=== PATIENT | male | born 1980 | race Caucasian/White ===

== ENCOUNTER 2021-04-02 13:56 | Outpatient (REF) | payer OTHER, SELFPAY ==
--- NOTE | ~2021-04-02 | XR_ITS ---
EXAMINATION: XR CERVICAL SPINE CLINICAL INFORMATION: Strain of muscle, fascia and tendon at the neck COMPARISON: CT of the cervical spine 09/11/2015 TECHNIQUE: 3 views of the cervical spine were obtained. FINDINGS: There is mild reversal of the normal lordosis of the cervical spine. Vertebral body heights are maintained. No acute fracture or dislocation. There has been fusion of C5-C6. There is intervertebral disc space narrowing at C4-C5 and C6-C7 with associated anterior and uncovertebral osteophyte formation. There is a normal C1-C2 articulation. The posterior elements are intact. The paravertebral soft tissues are normal. The lung apices are clear. XR/XR cervical spine 3V IMPRESSION: No acute bony abnormality of the cervical spine. Bony fusion between C5 and C6. Multilevel degenerative changes as above.
== END 2021-04-02 13:57 | disposition home or self-care (01) ==
LOC: HO.HMGCLDS 13:56
PROVIDERS: PCP Nurse Practitioner Family; Visit Provider Internal Medicine
DX: Z20.822 Contact with and (suspected) exposure to COVID-19 (principal); S16.1XXD Strain of muscle, fascia and tendon at neck level, subsequent encounter
CPT/HCPCS: 72040; C9803; U0003; U0005

== ENCOUNTER 2021-04-02 15:22 | Outpatient (REF) | payer OTHER, SELFPAY | END 2021-04-02 15:23 | disposition home or self-care (01) | LOC: HO.HMGCX 15:22 | PROVIDERS: Visit Provider Physician Assistant Medical | DX: Z13.89 Encounter for screening for other disorder (principal) ==

== ENCOUNTER 2021-04-09 11:51 | Outpatient (REF) | payer OTHER, SELFPAY | END 2021-04-09 11:52 | disposition home or self-care (01) | LOC: HO.HMGCLDS 11:51 | PROVIDERS: PCP Nurse Practitioner Family; Visit Provider Internal Medicine | DX: Z20.822 Contact with and (suspected) exposure to COVID-19 (principal) | CPT/HCPCS: C9803; U0003; U0005 ==

== ENCOUNTER 2021-04-26 07:36 | Outpatient (REF) | payer OTHER, SELFPAY ==
[2021-04-26 11:37] LABS: Alanine Aminotransferase 36 U/L (0-40); Albumin Level 4.2 g/dL (3.5-5.0); Alkaline Phosphatase 74 U/L (39-117); Anion Gap 14 (12-20); Aspartate Amino Transferase 27 U/L (5-37); Bilirubin Total 0.5 mg/dL (0.0-1.0); Blood Urea Nitrogen 21 mg/dL (9-16); Calcium 9.5 mg/dL (8.4-10.2); Carbon Dioxide 27 mmol/L (22-29); Chloride 102 mmol/L (96-108); Cholesterol 234 mg/dL; Estimated Glomerular Filt Rate > 60; Glucose Fasting 102 mg/dL (60-99); HDL Cholesterol 33 mg/dL; LDL Cholesterol Calculated 126 mg/dl; Potassium 4.7 mmol/L (3.3-5.1); Sodium 138 mmol/L (135-145); Total Protein 6.8 g/dL (6.5-8.0); Triglycerides 375 mg/dL
[2021-04-26 11:47] LABS: Appearance Urine CLEAR; Color Urine YELLOW; Glucose Urine UA NEG (NEG); Leukocyte Esterase Urine NEG (NEG); Nitrite Urine NEG (NEG); PH 6.5 (5.0-8.0); Urine Blood NEG (NEG); Urine Ketones NEG (NEG); Urine Protein NEG (NEG-TRACE)
[2021-04-26 11:58] LABS: TSH reflex Free T4 2.64 uIU/mL (0.32-4.0)
== END 2021-04-26 07:37 | disposition home or self-care (01) ==
LOC: HO.HMGCLDS 07:36
PROVIDERS: PCP Nurse Practitioner Family; Visit Provider Nurse Practitioner Family
DX: F41.9 Anxiety disorder, unspecified (principal)
CPT/HCPCS: 36415; 80053; 80061; 81003; 84443

== ENCOUNTER 2021-05-18 07:00 | Outpatient (RCR) | payer OTHER, SELFPAY ==
--- NOTE | 2021-09-14 07:43 | MHC.PT.DC ---
[facility] [place] Office [place] Office [place] Office [address] Zac Easton [address] [phone] F: [phone] F: [phone] F: [phone] F: [phone] Physical Therapy Discharge Report Diagnosis: neck pain Date of Surgery: Date of Evaluation: 04/13/21 Date of Discharge: 06/16/21 Treatments to Date: 7 Cancellations to Date: 0 No Shows to Date: 0 Discharge Status: Improved Function Independent with HEP Discharge Summary: Pt was at satisfactory level of s/s with good awareness on how to manage s/s. He has a good HEP and is appropriate to d/c to HEP at this time. 05/18/21: pt with increased tissue tension in UT/LS > on L. Pt notes improved postural awareness. 05/13/21: pt with less discomfort, less tissue tension. Work is producing less discomfort. Able to perform more postural ex during appts. 05/11/21: pt with less discomfort in c-spine and shoulders. good carryover with postural edu. limited to some extent with elbow pain. Addressed elbow discomfort with increased manual intervention to neck. However, s/s unchanged. Educated thoroughly on activity mod related to work activities in order to off load extensor mass. Electronically signed by: Abdoul Amaya PT Please sign and return to therapist. Thank you for your referral.
== END 2021-09-14 07:44 | disposition home or self-care (01) ==
LOC: HO.PTCHIC 07:00
PROVIDERS: Visit Provider Nurse Practitioner Family
DX: S16.1XXD Strain of muscle, fascia and tendon at neck level, subsequent encounter (principal); M54.2 Cervicalgia
CPT/HCPCS: 97110; 97140; 97162

== ENCOUNTER 2021-05-18 08:04 | Outpatient (REF) | payer OTHER, SELFPAY | END 2021-05-18 08:05 | disposition home or self-care (01) | LOC: HO.HMGCLDS 08:04 | PROVIDERS: PCP Nurse Practitioner Family; Visit Provider Internal Medicine | DX: Z20.822 Contact with and (suspected) exposure to COVID-19 (principal) | CPT/HCPCS: C9803; U0003; U0005 ==

== ENCOUNTER → 2021-07-20 08:00 | Outpatient (REF) | payer OTHER, SELFPAY ==
--- NOTE | ~2021-07-20 | NM_ITS ---
Exercise Myocardial perfusion study Indication: Chest pain to evaluate for myocardial ischemia Technique: The patient was brought in for an exercise perfusion study on 07/20/2021. Patient performed exercise as per Ming protocol and was injected 35 mCi of sestamibi was given intravenously one target HR was achieved. Images were obtained using the SPECT gamma camera interlaced with the gating device. Images were obtained in supine position. Resting perfusion study was performed on 07/21/2021.. Patient was administered 35 mCi of sestamibi intravenously at rest. Images were then obtained in supine position. Images obtained with and without CT attenuation. Total DLP 126mGy-cm. Images were processed with the software and compared side to side in short axis, horizontal long axis and vertical long axis views. Findings: The stress perfusion study showed non attenuated images show mildly reduced uptake in the basal inferior wall of the LV myocardium. The LV myocardium is normally perfused. Attenuation corrected images show normal uptake in the inferior wall reduced uptake in the apex of the LV myocardium.. The gated study shows normal LV systolic function with calculated LVEF of 60%. LV cavity is mildly dilated in size. The gated study shows normal systolic wall thickening and contraction of all segments. There is no transient ischemic dilation. Resting study shows intense uptake in the septum of the inferior wall uptake in the inferior and apical suboptimal.Non attenuated images show moderately reduced taken inferior wall of the LV myocardium.. Gating at rest reveals normal systolic wall motion with ejection fraction at 67%. The findings are consistent with likely normal myocardial perfusion. NM/NM cardiolite stress test Impression: 1. Likely normal myocardial perfusion 2. Gated LVEF is 60% 3. Transient ischemic dilatation not present Stress EKG is negative for ischemia
--- NOTE | 2021-07-20 08:03 | CA_ITS ---
Acquisition Time: 2021-07-20 08:07:47 Total Exercise Time: 00:09:00 Test Indications: Chest Pain Medications: ATORVASTATIN CYCLOBENZAPRINE METHADONE Protocol: JOSE RAUL Max HR: 157 BPM 87% of Pred: 180 BPM Max BP: 166/088 mmHG Max Work Load: 10.1 METS Exercise stress test with exercise 9 min of Jose Raul protocol, with mild sob, no chest discomfort with exercise, with isolated PVC, with normotensive response to exercise, without EKG changes meeting criteria for ischemia. Once in recovery he reported a mild ache in right chest region that lasted about 2 min and resolved. Nuclear images pending. Test reviewed with Dr Forte. Referred By: Da Valdez Overread By: MARIA DOLORES SO
[2021-07-20 10:29] LABS: Cholesterol 122 mg/dL; HDL Cholesterol 27 mg/dL; LDL Cholesterol Calculated 35 mg/dl; Triglycerides 304 mg/dL
== END ==
LOC: HO.CARD 08:00
PROVIDERS: PCP Nurse Practitioner Family; Visit Provider Nurse Practitioner Family
DX: R07.89 Other chest pain (principal); E78.5 Hyperlipidemia, unspecified; Z82.49 Family history of ischemic heart disease and other diseases of the circulatory system
CPT/HCPCS: 36415; 78452; 80061; 93017; A9500

== ENCOUNTER 2021-08-08 12:57 | Outpatient (REF) | payer OTHER, SELFPAY ==
--- NOTE | ~2021-08-08 | US_ITS ---
EXAMINATION: US EXTRACRANIAL CAROTID DUPLEX, BILATERAL CLINICAL INFORMATION: Dyslipidemia, smoking history, family history of coronary artery disease COMPARISON: None TECHNIQUE: Real-time ultrasound and Doppler techniques (integrating B-mode 2-D vascular images, Doppler spectral analysis and color-flow Doppler imaging) were utilized to interrogate the extracranial carotid arteries, the vertebral arteries and proximal subclavian arteries bilaterally. The degree of stenosis is determined by criteria similar to NASCET. FINDINGS: Right Side: 1. There is mild atherosclerotic plaque seen in the bifurcation/proximal ICA region. 2. The common carotid artery PSV proximally is 147 cm/s and distally 96 cm/s. 3. The proximal internal carotid artery velocities are 139 cm/s systolic and 34 cm/s diastolic. 4. The proximal external carotid artery PSV is 116 cm/s. 5. The vertebral artery shows antegrade flow. 6. The subclavian artery waveforms are normal. Left Side: 1. There is mild atherosclerotic plaque seen in the bifurcation/proximal ICA region. 2. The common carotid artery PSV proximally is 172 cm/s and distally 116 cm/s. 3. The proximal internal carotid artery velocities are 100 cm/s systolic and 36 cm/s diastolic. 4. The proximal external carotid artery PSV is 143 cm/s. 5. The vertebral artery shows antegrade flow. 6. The subclavian artery waveforms are normal. US/US carotid duplex BI IMPRESSION: 1. RIGHT: Moderate, hemodynamically significant stenosis of the proximal right internal carotid artery corresponding to a 50-79% stenosis by velocity criteria. 2. LEFT: Minimal, non-hemodynamically significant stenosis of the proximal left internal carotid artery corresponding to a 0-49% stenosis by velocity criteria.
== END 2021-08-08 12:58 | disposition home or self-care (01) ==
LOC: HO.HMGCX 12:57
PROVIDERS: PCP Nurse Practitioner Family; Visit Provider Nurse Practitioner Family
DX: F17.200 Nicotine dependence, unspecified, uncomplicated (principal); E78.5 Hyperlipidemia, unspecified; Z82.49 Family history of ischemic heart disease and other diseases of the circulatory system
CPT/HCPCS: 93880

== ENCOUNTER → 2021-09-20 15:26 | Outpatient (BNVA) | payer OTHER, SELFPAY | PROVIDERS: PCP Nurse Practitioner Family; Visit Provider Surgery Vascular Surgery | DX: I65.23 Occlusion and stenosis of bilateral carotid arteries (principal) | CPT/HCPCS: 99202 ==

== ENCOUNTER 2021-10-06 07:22 | Outpatient (REF) | payer OTHER, SELFPAY ==
--- NOTE | ~2021-10-06 | MR_ITS ---
EXAMINATION: MR CERVICAL SPINE WITHOUT CONTRAST CLINICAL INFORMATION: 41-year-old with cervicalgia. COMPARISON: 04/02/2021 x-rays, 09/11/2015 CT. TECHNIQUE: MRI of the cervical spine was obtained using routine sequences without contrast. FINDINGS: Alignment: Slight mid cervical levocurvature, stable in appearance from previous CT. There is lordotic reversal centered at C4-C5, similar to previous x-rays. Craniocervical Junction/C1-C2 Articulations: Intact and aligned. Visualized Intracranial Structures: Within normal limits. Vertebral Bodies: Moderate chronic loss of height of the anterior aspect of the C5 vertebral body and mild chronic loss of height of the anterior aspect of the C6 vertebral body, with ankylosis of the intervertebral disc space at this level, similar to previous x-rays. Remaining vertebral body heights are well maintained. Disc Spaces and Endplates: There is solid osseous interbody fusion at the C5-C6 level which has developed since the previous CT. Remaining intervertebral disc space heights are relatively well maintained with minor anterior marginal disc-osteophyte complex at C4-C5 and minor anterior marginal endplate spurring at the C6-C7. Disc desiccation is noted at C2-C3, C3-C4, C4-C5, and C6-C7. Bone Marrow: No significant marrow-replacing process or bone marrow edema. C2-C3: No disc herniation or canal stenosis. Minor left-sided and moderate right-sided facet arthropathy with moderate right-sided neural foraminal stenosis without canal stenosis. C3-C4: No disc herniation or canal stenosis. Uncovertebral spurring noted bilaterally with [id number]-mbnczdra bilateral facet arthropathy, right more than left, with kecdnwif-ke-bjokqb bilateral neural foraminal stenosis. C4-C5: No disc herniation, cord impingement or canal stenosis. Bilateral uncovertebral spurring noted with moderate bilateral facet arthropathy, right more than left, with severe right-sided and yzgnwtkz-ir-idmouu left-sided neural foraminal stenosis. C5-C6: Posterior osteophytic ridging noted with osseous interbody fusion and mild flattening of the ventral dural sac without cord impingement or canal stenosis. Facet joints are predominately ankylosed at this level bilaterally, and there is moderate bony neural foraminal stenosis on the left with mild right-sided bony neural foraminal stenosis. C6-C7: Shallow broad-based central disc protrusion with slight flattening the ventral dural sac without cord impingement or significant spinal canal stenosis. Bilateral uncovertebral disc-osteophyte complex noted with moderate facet arthropathy bilaterally and kswmluqy-yl-hdhlgd bilateral neural foraminal stenosis. C7-T1: No disc herniation, cord impingement or canal stenosis. Moderate left-sided and hiou-zr-qbrblbho right-sided facet arthrosis noted with moderate left-sided neural foraminal stenosis. Spinal Cord: The cervical and visualized upper thoracic spinal cord is normal in morphology, caliber and signal intensity throughout within the limitations of the study (signal poor images on the axial T2-weighted sequence). Extracranial Soft Tissues: Grossly unremarkable. MR/MR cervical spine wo con IMPRESSION: 1. Lordotic reversal centered at C5 with anterior interbody fusion at this level, similar to previous x-rays, with bilateral facet joint fusion as well with mild right-sided and moderate left-sided bony neural foraminal stenosis. 2. Shallow broad-based central disc protrusion at C6-C7 without spinal cord impingement or significant canal stenosis. 3. Multilevel bilateral uncovertebral and facet arthropathy with multilevel bilateral neural foraminal stenosis, as detailed by level above, between C2-C3 and C7-T1 inclusive.
== END 2021-10-06 07:23 | disposition home or self-care (01) ==
LOC: HO.MRI 07:22
PROVIDERS: Visit Provider Nurse Practitioner Family
DX: M54.2 Cervicalgia (principal); M54.12 Radiculopathy, cervical region
CPT/HCPCS: 72141

== ENCOUNTER 2022-03-30 15:06 | Outpatient (REF) | payer OTHER, SELFPAY ==
--- NOTE | ~2022-03-30 | US_ITS ---
EXAMINATION: US EXTRACRANIAL CAROTID DUPLEX, BILATERAL CLINICAL INFORMATION: Occlusion and stenosis of the carotid arteries COMPARISON: Carotid duplex on 08/08/2021 TECHNIQUE: Real-time ultrasound and Doppler techniques (integrating B-mode 2-D vascular images, Doppler spectral analysis and color-flow Doppler imaging) were utilized to interrogate the extracranial carotid arteries, the vertebral arteries and proximal subclavian arteries bilaterally. The degree of stenosis is determined by criteria similar to NASCET. FINDINGS: Right Side: 1. There is moderate atherosclerotic plaque seen in the bifurcation/proximal ICA region. 2. The common carotid artery PSV proximally is 151 cm/s and distally 100 cm/s. 3. The proximal internal carotid artery velocities are 133 cm/s systolic and 34 cm/s diastolic. 4. The proximal external carotid artery PSV is 136 cm/s. 5. The vertebral artery shows antegrade flow. 6. The subclavian artery waveforms are normal. Left Side: 1. There is mild atherosclerotic plaque seen in the bifurcation/proximal ICA region. 2. The common carotid artery PSV proximally is 159 cm/s and distally 99 cm/s. 3. The proximal internal carotid artery velocities are 110 cm/s systolic and 36 cm/s diastolic. 4. The proximal external carotid artery PSV is 164 cm/s. 5. The vertebral artery shows antegrade flow. 6. The subclavian artery waveforms are normal. US/US carotid duplex BI IMPRESSION: 1. RIGHT: Moderate, hemodynamically significant stenosis of the proximal right internal carotid artery corresponding to a 50-79% stenosis by velocity criteria. 2. LEFT: Minimal, non-hemodynamically significant stenosis of the proximal left internal carotid artery corresponding to a 0-49% stenosis by velocity criteria. 3. There is no change in the category severity of disease when compared to the previous study dated 08/08/2021.
== END 2022-03-30 15:07 | disposition home or self-care (01) ==
LOC: HO.US 15:06
PROVIDERS: PCP Nurse Practitioner Family; Visit Provider Surgery Vascular Surgery
DX: I65.23 Occlusion and stenosis of bilateral carotid arteries (principal)
CPT/HCPCS: 93880

== ENCOUNTER → 2022-04-04 15:14 | Outpatient (BNVA) | payer OTHER, SELFPAY | PROVIDERS: PCP Nurse Practitioner Family; Visit Provider Surgery Vascular Surgery | DX: I65.23 Occlusion and stenosis of bilateral carotid arteries (principal) | CPT/HCPCS: 99212 ==

== ENCOUNTER 2022-07-19 07:25 | Outpatient (REF) | payer OTHER, SELFPAY ==
[2022-07-19 11:08] LABS: MANUAL DIFF FLAG NO
[2022-07-19 11:18] LABS: Basophils Absolute Auto 0.1 X10*3/uL (0.0-0.2); Basophils Percent Auto 0.9 % (0-2); Eosinophils Absolute Auto 0.2 X10*3/uL (0.0-0.4); Eosinophils Percent Auto 2.1 % (0-4); Hematocrit 43.3 % (42.0-52.0); Hemoglobin 14.4 g/dl (14.0-18.0); Imm Gran Abs Auto 0.02 X10*3/uL (0.00-0.03); Imm Gran Pct Auto 0.2 % (0.0-0.4); Lymphocytes Absolute Auto 2.8 X10*3/uL (1.2-4.9); Lymphocytes Percent Auto 35.4 % (20-40); Mean Corpuscular HGB Conc 33.3 g/dl (31.0-36.0); Mean Corpuscular Hemoglobin 30.3 pg (27.0-33.0); Mean Corpuscular Volume 91.2 fL (80.0-98.0); Monocytes Absolute Auto 0.4 X10*3/uL (0.1-1.2); Neutrophils Absolute Auto 4.5 x10*3/uL (2.0-8.3); Neutrophils Percent Auto 56.4 % (45-73); Platelet Count 198 X10*3/uL (160-400); Red Blood Count 4.75 X10*6/uL (4.60-5.80); Red Cell Distribution Width 13.2 % (11.0-16.0)
[2022-07-19 11:33] LABS: Appearance Urine Clear; Color Urine Yellow; Glucose Urine UA Negative (Negative); Leukocyte Esterase Urine Negative (Negative); Nitrite Urine Negative (Negative); PH 6.5 (5.0-9.0); Specific Gravity - Urine >= 1.030 (1.005-1.025); Urine Blood Negative (Negative); Urine Ketones Negative (Negative); Urine Protein Trace mg/dL (Neg-Trace)
[2022-07-19 11:43] LABS: Alanine Aminotransferase 23 U/L (0-40); Albumin Level 3.7 g/dL (3.5-5.0); Alkaline Phosphatase 99 U/L (39-117); Anion Gap 13 (12-20); Aspartate Amino Transferase 22 U/L (5-37); Bilirubin Total 0.7 mg/dL (0.0-1.0); Blood Urea Nitrogen 15 mg/dL (9-16); Calcium 8.7 mg/dL (8.4-10.2); Carbon Dioxide 25 mmol/L (22-29); Chloride 101 mmol/L (96-108); Cholesterol 162 mg/dL; Estimated Glomerular Filt Rate > 60; Glucose Fasting 254 mg/dL (60-99); HDL Cholesterol 23 mg/dL; Potassium 4.4 mmol/L (3.3-5.1); Sodium 135 mmol/L (135-145); Total Protein 6.2 g/dL (6.5-8.0); Triglycerides 724 mg/dL
[2022-07-19 12:09] LABS: TSH reflex Free T4 2.86 uIU/mL (0.32-4.0)
== END 2022-07-19 07:26 | disposition home or self-care (01) ==
LOC: HO.HMGCLDS 07:25
PROVIDERS: PCP Nurse Practitioner Family; Visit Provider Nurse Practitioner Family
DX: Z00.00 Encounter for general adult medical examination without abnormal findings (principal); E78.1 Pure hyperglyceridemia; E78.5 Hyperlipidemia, unspecified
CPT/HCPCS: 36415; 80053; 80061; 81003; 84443; 85025

== ENCOUNTER 2022-08-16 06:25 | Outpatient (REF) | payer OTHER, SELFPAY ==
[2022-08-16 11:46] LABS: Appearance Urine Turbid; Color Urine Yellow; Glucose Urine UA Negative (Negative); Leukocyte Esterase Urine Negative (Negative); Nitrite Urine Negative (Negative); PH 5.5 (5.0-9.0); Specific Gravity - Urine >= 1.030 (1.005-1.025); Urine Blood Negative (Negative); Urine Ketones Negative (Negative); Urine Protein Negative (Neg-Trace)
[2022-08-16 11:54] LABS: MANUAL DIFF FLAG NO
[2022-08-16 12:10] LABS: Basophils Percent Auto 0.4 % (0-2); Eosinophils Absolute Auto 0.1 X10*3/uL (0.0-0.4); Eosinophils Percent Auto 1.4 % (0-4); Hematocrit 43.9 % (42.0-52.0); Hemoglobin 14.1 g/dl (14.0-18.0); Imm Gran Abs Auto 0.03 X10*3/uL (0.00-0.03); Imm Gran Pct Auto 0.3 % (0.0-0.4); Lymphocytes Absolute Auto 2.6 X10*3/uL (1.2-4.9); Lymphocytes Percent Auto 26.6 % (20-40); Mean Corpuscular HGB Conc 32.1 g/dl (31.0-36.0); Mean Corpuscular Hemoglobin 30.5 pg (27.0-33.0); Mean Platelet Volume 10.8 fL (9.4-12.4); Monocytes Absolute Auto 0.5 X10*3/uL (0.1-1.2); Monocytes Percent Auto 4.8 % (2-11); Neutrophils Absolute Auto 6.5 x10*3/uL (2.0-8.3); Neutrophils Percent Auto 66.5 % (45-73); Platelet Count 207 X10*3/uL (160-400); Red Blood Count 4.62 X10*6/uL (4.60-5.80); White Blood Count 9.8 X10*3/uL (4.8-10.8)
[2022-08-16 12:48] LABS: Estimated Average Glucose 226 mg/dL; Hemoglobin A1c % 9.5 %
[2022-08-16 13:03] LABS: Alanine Aminotransferase 21 U/L (0-40); Albumin Level 3.9 g/dL (3.5-5.0); Alkaline Phosphatase 72 U/L (39-117); Anion Gap 16 (12-20); Aspartate Amino Transferase 21 U/L (5-37); Bilirubin Total 0.4 mg/dL (0.0-1.0); Blood Urea Nitrogen 20 mg/dL (9-16); Calcium 8.8 mg/dL (8.4-10.2); Carbon Dioxide 21 mmol/L (22-29); Chloride 107 mmol/L (96-108); Cholesterol 84 mg/dL; Estimated Glomerular Filt Rate > 60; Glucose Fasting 185 mg/dL (60-99); HDL Cholesterol 25 mg/dL; LDL Cholesterol Calculated 23 mg/dl; Potassium 4.7 mmol/L (3.3-5.1); Sodium 139 mmol/L (135-145); TSH reflex Free T4 2.38 uIU/mL (0.32-4.0); Total Protein 6.2 g/dL (6.5-8.0); Triglycerides 181 mg/dL
== END 2022-08-16 06:26 | disposition home or self-care (01) ==
LOC: HO.HMGCLDS 06:25
PROVIDERS: PCP Nurse Practitioner Family; Visit Provider Nurse Practitioner Family
DX: E11.9 Type 2 diabetes mellitus without complications (principal)
CPT/HCPCS: 36415; 80053; 80061; 81003; 83036; 84443; 85025

== ENCOUNTER 2023-04-30 08:47 | Outpatient (AMB) | payer OTHER, SELFPAY ==
--- NOTE | 2023-04-30 08:53 | MHC.PC.OV ---
Vital Signs 04/30/23 08:55 Height 5 ft 11 in Weight 248 lb BMI 34.6 BP 150/90 H Blood Pressure Location Lt brachial Position Sitting Pulse 57 Pulse Source Pulse Oximeter Pulse Oximetry (%) 97 Oxygen Delivery Method Room Air Intake Visit Reasons: Annual PE Intake Note: Pt is here today for his PE Allergies cephalexin [Keflex] Allergy (Unknown, Verified 04/30/23 08:56) Hives From Keflex Allergy (Unknown, Uncoded 04/30/23 08:56) HIVES Medication List - Last Reconciled 04/30/23 by Da Valdez, [facility]- atorvastatin 40 mg PO BEDTIME blood sugar diagnostic (FreeStyle Lite Strips) Use to check blood sugar twice daily: fasting blood sugar and random blood sugar blood-glucose meter (FreeStyle Lite Meter kit) Use to check blood sugar twice daily: fasting blood sugar and random blood sugar lancets (FreeStyle Lancets) Use to check blood sugar twice daily: fasting blood sugar and random blood sugar lisinopril 2.5 mg PO DAILY metformin 1,000 mg PO BID methadone 62 mg PO DAILY metoprolol succinate ER 50 mg PO DAILY nicotine (polacrilex) (Nicorette) 4 mg buccal Q2H PRN 30 days omega-3 acid ethyl esters 2 caps PO BID 90 days Tobacco use date assessed: 04/30/23 Dental Screening Dental Screen Date: 04/30/23 Did you have a dental visit in the last 12 months?: Yes Did you have a dental problem in the last 6 months where you did not have access to dental care?: Yes Was dental information given to patient?: Patient has dentist HPI Annual PE HPI Details Pt is here for a PE. Will order labs. Pt is a diabetic, on an TAYLOR and a statin. A1C in office today is 6.2. Due for microalbumin. Denies polyuria, polydipsia, reports neuropathy to his left big toe. Pt denies any signs and symptoms of hypoglycemia and does know how to correct it. Pt does not check his blood sugar. Pt needs an eye doctor, will refer. Refuses pneumonia vaccines, currently. Pt reports not checking his sugars often, reinforced importance of knowing what his numbers are. HTN: Blood pressure is elevated today, will increase lisinopril from 2.5mg to 5mg. Will have pt monitor his BP at home. Denies chest pain, shortness of breath, headache, dizziness, and blurred vision. [facility] Social History Housing: House Patient Tobacco Use Status: Current everyday Tobacco user Cigarettes Per Day: 10 e-Cigarette/Vaping Use: Never Used Second Hand Smoke Exposure: No service: No Current occupational status: employed Current occupation: [employer] Current occupational exposures/hazards: No Cognitive needs: No Hearing needs: No Vision needs: No Questionnaire Thrive Questionnaire Date Thrive assessed: 10/17/22 HARVINDER-7 AMB Questionnaire HARVINDER-7 Date HARVINDER - 7 assessed: 10/17/22 Source: Developed by Drs. Mayco Aquino, Belen Perez, Cosme Pacheco and colleagues, with an educational genna from [employer]. Review of Systems Const Denies chills and Denies fever(s) Eyes Denies blurry vision ENT Denies vertigo, Denies dizziness and Denies sore throat Card Denies chest pain at rest, Denies chest pain with activity, Denies diaphoresis, Denies dyspnea and Denies dyspnea on exertion Resp Denies cough, Denies dyspnea, Denies dyspnea on exertion and Denies wheezing GI Denies abdominal pain, Denies melena, Denies hematochezia, Denies constipation, Denies diarrhea and Denies loose stools Denies hematuria Musc Denies numbness and Denies tingling Skin/Breast Denies lesions Neuro Denies vertigo, Denies dizziness, Denies numbness and Denies tingling Psych Denies anxiety, Denies depression, Denies homicidal ideation, Denies suicidal ideation and Denies other (substance abuse) Aller/Immun Denies wheezing Physical exam (Primary Care) Vital Signs: Last Vital Signs Pulse 57 04/30/23 08:55 BP 150/90 H 04/30/23 08:55 Pulse Ox 97 04/30/23 08:55 Oxygen Delivery Method Room Air 04/30/23 08:55 BMI result Body Mass Index 34.6 Tobacco/Smoking Status: Tobacco use Status Tobacco use date assessed 04/30/23 04/30/23 08:57 Patient Tobacco Use Status Current everyday Tobacco 04/30/23 08:55 e-Cigarette/Vaping Use Never Used 04/30/23 08:55 Thrive Assessment: Date of Thrive Assessment Date Thrive assessed 10/17/22 04/30/23 08:55 Const General: cooperative Nutritional Appearance: obese Orientation/consciousness: patient oriented x3 HENMT Head: Yes normal to inspection, Yes normocephalic and Yes atraumatic Ears: TM's normal bilaterally Eyes General: appearance normal, both eyes and all related structures Alignment and Position: alignment normal and position normal Neck Neck: Yes normal visual inspection and Yes no lymphadenopathy Thyroid: Thyroid normal Resp Effort & Inspection: normal respiratory effort Auscultation: clear to auscultation bilaterally Cardio Rate: regular rate Rhythm: regular rhythm Heart sounds: S1 normal heart sound present, S2 normal heart sound present and no murmurs GI Palpation (GI): Soft to palpation and nontender Auscultation: normal bowel sounds Male General Exam: Yes normal external exam Penis: normal penis Scrotum: scrotum normal, testes descended bilaterally and no inguinal hernias Testes: no testicular mass Skin Rashes: no rashes Neuro General: patient oriented x3, moves all extremities, no focal motor deficits and deep tendon reflexes 2+ bilaterally Romberg Test: Negative Extrem Other: bilat feet: + sensation with use of monofilament Psych Appearance: grossly normal Mental Status: mental status grossly normal Speech and movement: Normal speech and movement present Affect: normal affect Attitude: cooperative Thought process: Normal thought process present Thought content: Normal thought content present Insight: Good insight present (Psych) Judgement: Good judgement present (Psych) Results AMB Hemoglobin A1c AMB Hemoglobin A1c 6.2 % Last Edit by Catarina Chávez CMA on 04/30/23 09:15 Assessment and Plan Assessment & Plan (1) Diabetes: Code(s): E11.9 - Type 2 diabetes mellitus without complications Plan: Labs ordered (2) Physical exam: Code(s): Z00.00 - Encounter for general adult medical examination without abnormal findings Plan: Labs ordered (3) HTN (hypertension): Code(s): I10 - Essential (primary) hypertension Plan: increased lisinopril from 2.5mg to 5mg, pt will call me if sustaining above 140/90 Plan The patient agreed to the use of a medical office receptionist assistant for this encounter. Scribed for SHON Bishop by chad Head scribe, on 04/30/2023 at 09:10 EST. Orders: Orders AMB Hemoglobin A1c Today E11.9 - Type 2 diabetes mellitus without complications Comprehensive [place]. Panel Fast Today E11.9 - Type 2 diabetes mellitus without complications, Z00.00 - Encounter for general adult medical examination without abnormal findings TSH reflex Free T4 Today E11.9 - Type 2 diabetes mellitus without complications, Z00.00 - Encounter for general adult medical examination without abnormal findings Lipid Panel Today E11.9 - Type 2 diabetes mellitus without complications, Z00.00 - Encounter for general adult medical examination without abnormal findings Complete Blood Count Auto Diff Today E11.9 - Type 2 diabetes mellitus without complications, Z00.00 - Encounter for general adult medical examination without abnormal findings UA CC w/rflx Micro + Cult Today E11.9 - Type 2 diabetes mellitus without complications, Z00.00 - Encounter for general adult medical examination without abnormal findings Microalbumin, Random (w Creat) Today E11.9 - Type 2 diabetes mellitus without complications, Z00.00 - Encounter for general adult medical examination without abnormal findings Referrals Optometry Referral E11.9 - Type 2 diabetes mellitus without complications Medications: Changed From lisinopril 2.5 mg PO DAILY 90 tabs 1RF To lisinopril increased from 2.5mg to 5mg 5 mg PO DAILY 90 tabs 1RF Coding Level of Care Code Est Pt Prev Care 40-64y(69516) Diagnoses Diabetes E11.9 Physical exam Z00.00 HTN (hypertension) I10
[2023-04-30 08:55] VITALS: BP 150/90; PULSE 57; O2SAT 97; BMI 34.6
== END 2023-04-30 09:22 | disposition home or self-care (01) ==
PROVIDERS: Visit Provider Nurse Practitioner Family
DX: Z00.00 Encounter for general adult medical examination without abnormal findings (principal); E11.9 Type 2 diabetes mellitus without complications; I10 Essential (primary) hypertension; F17.210 Nicotine dependence, cigarettes, uncomplicated
CPT/HCPCS: 83036; 99396

== ENCOUNTER 2023-07-25 07:11 | Outpatient (REF) | payer OTHER, SELFPAY ==
[2023-07-25 11:08] LABS: MANUAL DIFF FLAG NO
[2023-07-25 11:25] LABS: Appearance Urine Clear; Color Urine Yellow; Glucose Urine UA Negative (Negative); Leukocyte Esterase Urine Negative (Negative); Nitrite Urine Negative (Negative); PH 5.5 (5.0-9.0); Urine Blood Negative (Negative); Urine Ketones Negative (Negative); Urine Protein Negative (Neg-Trace)
[2023-07-25 11:26] LABS: Basophils Percent Auto 0.4 % (0-2); Eosinophils Absolute Auto 0.1 X10*3/uL (0.0-0.4); Eosinophils Percent Auto 0.7 % (0-4); Hematocrit 43.1 % (42.0-52.0); Hemoglobin 14.4 g/dl (14.0-18.0); Imm Gran Abs Auto 0.02 X10*3/uL (0.00-0.03); Imm Gran Pct Auto 0.2 % (0.0-0.4); Lymphocytes Absolute Auto 2.6 X10*3/uL (1.2-4.9); Lymphocytes Percent Auto 31.5 % (20-40); Mean Corpuscular HGB Conc 33.4 g/dl (31.0-36.0); Mean Corpuscular Hemoglobin 30.6 pg (27.0-33.0); Mean Corpuscular Volume 91.5 fL (80.0-98.0); Mean Platelet Volume 9.7 fL (9.4-12.4); Monocytes Absolute Auto 0.4 X10*3/uL (0.1-1.2); Monocytes Percent Auto 5.3 % (2-11); Neutrophils Absolute Auto 5.1 x10*3/uL (2.0-8.3); Neutrophils Percent Auto 61.9 % (45-73); Platelet Count 280 X10*3/uL (160-400); Red Blood Count 4.71 X10*6/uL (4.60-5.80); Red Cell Distribution Width 12.7 % (11.0-16.0); White Blood Count 8.3 X10*3/uL (4.8-10.8)
[2023-07-25 11:42] LABS: Creatinine Urine 154.77 mg/dL; Microalbum/Creatinine Ratio Ur 6.4 ug/mg cr (<30)
[2023-07-25 12:06] LABS: Alanine Aminotransferase 24 U/L (0-40); Albumin Level 4.1 g/dL (3.5-5.0); Alkaline Phosphatase 67 U/L (39-117); Anion Gap 12 (12-20); Aspartate Amino Transferase 23 U/L (5-37); Bilirubin Total 0.3 mg/dL (0.0-1.0); Blood Urea Nitrogen 17 mg/dL (9-16); Calcium 9.3 mg/dL (8.4-10.2); Carbon Dioxide 26 mmol/L (22-29); Chloride 107 mmol/L (96-108); Cholesterol 117 mg/dL (<200); Estimated Glomerular Filt Rate > 60; Glucose Fasting 138 mg/dL (60-99); HDL Cholesterol 23 mg/dL (>40); LDL Cholesterol Calculated 27 mg/dL (<100); Potassium 4.1 mmol/L (3.3-5.1); Sodium 141 mmol/L (135-145); TSH reflex Free T4 1.33 uIU/mL (0.32-4.0); Total Protein 6.9 g/dL (6.5-8.0); Triglycerides 339 mg/dL (<150)
[2023-07-25 12:54] LABS: Estimated Average Glucose 120 mg/dL; Hemoglobin A1C 145.0183 umol/L; Hemoglobin A1c % 5.8 % (<6.0)
[2023-07-25 15:54] LABS: Influenza A PCR POSITIVE (Negative); Influenza B PCR NEGATIVE (Negative); Resp Syncy Virus RNA Qual PCR NEGATIVE (Negative); SARS COV2 PCR INHOUSE NEGATIVE (Negative)
== END 2023-07-25 07:12 | disposition home or self-care (01) ==
LOC: HO.HMGCLDS 07:11
PROVIDERS: Nurse Practitioner Family; PCP Nurse Practitioner Family; Visit Provider Nurse Practitioner Family
DX: Z00.00 Encounter for general adult medical examination without abnormal findings (principal); Z11.52 Encounter for screening for COVID-19; Z20.822 Contact with and (suspected) exposure to COVID-19; E11.9 Type 2 diabetes mellitus without complications; R05.9 Cough, unspecified
CPT/HCPCS: 0241U; 36415; 80053; 80061; 81003; 82043; 82570; 83036; 84443; 85025

== ENCOUNTER 2023-07-25 10:52 | Outpatient (AMB) | payer OTHER, SELFPAY ==
[2023-07-25 11:06] VITALS: BP 130/70; PULSE 91; TEMP 36.3; O2SAT 96; BMI 33.6
--- NOTE | 2023-07-25 11:06 | MHC.OFFWIV ---
Intake Vital Signs 07/25/23 11:06 Height 5 ft 11 in Weight 241 lb BMI 33.6 BP 130/70 Blood Pressure Location Lt brachial Position Sitting Pulse 91 Pulse Source Pulse Oximeter Temp 97.4 F Temp Source Temporal Artery Scan Pulse Oximetry (%) 96 Oxygen Delivery Method Room Air Intake Visit Reasons: EP, sinus pressure, dizziness 1 week Intake Note: pt is here today for sinus pressure and dizziness started 1 week ago Patient Tobacco Use Status: Current everyday Tobacco user Allergies cephalexin [Keflex] Allergy (Unknown, Verified 07/25/23 11:07) Hives From Keflex Allergy (Unknown, Uncoded 04/30/23 08:56) HIVES Do you need a note to return to daycare/school/sports/work: Yes HPI HPI Comments History of Present Illness Details 43 y/o male patient who present to walk in clinic with c/o sinus pressure and cough. Symptoms started about 1 week ago. Reports that his daughter is home sick from Influenza. [facility] Social History Housing: House Patient Tobacco Use Status: Current everyday Tobacco user Cigarettes Per Day: 10 e-Cigarette/Vaping Use: Never Used Second Hand Smoke Exposure: No service: No Current occupational status: employed Current occupation: [employer] Current occupational exposures/hazards: No Cognitive needs: No Hearing needs: No Vision needs: No Review of Systems Const All systems reviewed & are unremarkable except as noted in HPI and below Physical Exam Vital Signs: Last Vital Signs Temp 97.4 F 07/25/23 11:06 Pulse 91 07/25/23 11:06 BP 130/70 07/25/23 11:06 Pulse Ox 96 07/25/23 11:06 Oxygen Delivery Method Room Air 07/25/23 11:06 BMI result Body Mass Index 33.6 Const General: comfortable and no acute distress HEENT Head: Yes normocephalic Ears: external ears normal and TM's normal bilaterally General nose exam: Abnormal mucous membranes and turbinates present boggy and erythematous Face and sinus: Yes sinuses nontender Mouth: moist mucous membranes Throat: Yes posterior oropharynx normal Resp Effort & Inspection: normal respiratory effort, able to speak in complete sentences and Actively coughing Auscultation: clear to auscultation bilaterally Cardio Rate: regular rate Rhythm: regular rhythm Assessment & Plan Assessment & Plan (1) Cough in adult: Code(s): R05.9 - Cough, unspecified Plan: - OTC Cold/cough remedies (2) Upper respiratory infection: Code(s): J06.9 - Acute upper respiratory infection, unspecified Qualifiers: URI type: acute nasopharyngitis (common cold) Qualified Code(s): J00 - Acute nasopharyngitis [common cold] Plan: - Warm fluids - Rest (3) Influenza A: Code(s): J10.1 - Influenza due to other identified influenza virus with other respiratory manifestations Plan: - Take Tamiflu as directed. Orders: Orders SARS-CoV2/FLU/RSV Today R05.9 - Cough, unspecified Medications: New polpidepgdvln-DU-baxomewdnur 5-10-100 mg/5 mL (Adult Robitussin Peak Cold M-S) 10 mL PO Q4H PRN 237 mL 0RF cold symptoms J06.9 - Acute upper respiratory infection, unspecified, R05.9 - Cough, unspecified oseltamivir (Tamiflu) 75 mg PO BID 5 days 10 caps 0RF J06.9 - Acute upper respiratory infection, unspecified, J10.1 - Influenza due to other identified influenza virus with other respiratory manifestations, R05.9 - Cough, unspecified oseltamivir (Tamiflu) 75 mg PO BID 5 days 10 caps 0RF J06.9 - Acute upper respiratory infection, unspecified, R05.9 - Cough, unspecified oseltamivir (Tamiflu) 75 mg PO BID 5 days 10 caps 0RF J06.9 - Acute upper respiratory infection, unspecified, R05.9 - Cough, unspecified Coding Level of Care Code Est Pt Level 3 (45382) Diagnoses Cough in adult R05.9 Acute nasopharyngitis J00 URI type: acute nasopharyngitis (common cold) Influenza A J10.1 Time Spent (min) 15
== END 2023-07-25 11:58 | disposition home or self-care (01) ==
PROVIDERS: PCP Nurse Practitioner Family; Visit Provider Nurse Practitioner Family
DX: R05.9 Cough, unspecified (principal); J10.1 Influenza due to other identified influenza virus with other respiratory manifestations
CPT/HCPCS: 99213

== ENCOUNTER 2023-07-25 11:49 | Outpatient (REF) | payer OTHER, SELFPAY | END 2023-07-25 11:50 | disposition home or self-care (01) | LOC: HO.LAB 11:49 | PROVIDERS: Visit Provider Nurse Practitioner Family | DX: Z13.89 Encounter for screening for other disorder (principal) ==

== ENCOUNTER 2023-10-20 16:42 | Emergency (ER) | payer OTHER, SELFPAY ==
[2023-10-20 16:45] VITALS: BP 148/64; PULSE 73; RESP 18; TEMP 36.8; O2SAT 97; BMI 33.5
--- NOTE | 2023-10-20 16:49 | ED.WOUNDLAC ---
HPI - Wound/Laceration General Chief Complaint: Wound/Laceration Stated Complaint: left leg laceration Related Data Previous Rx's ?Medication ?Instructions ?Recorded blood sugar diagnostic (FreeStyle #100 ea 08/18/22 Lite Strips) blood-glucose meter (FreeStyle #1 ea 08/18/22 Lite Meter kit) lancets 28 gauge (FreeStyle #100 ea 08/18/22 Lancets) metformin 1,000 mg tablet 1,000 mg PO BID #180 tabs 03/13/23 fenofibric acid 105 mg tablet 105 mg PO DAILY #90 tabs 07/25/23 oseltamivir 75 mg capsule (Tamiflu) 75 mg PO BID 5 days #10 caps 07/25/23 jpurmhrbxkqsq-HA-pduzpbejouj 5 10 ml PO Q4H PRN cold symptoms 07/25/23 mg-10 mg-100 mg/5 mL oral liquid #237 mL (Adult Robitussin Peak Cold M-S) omega-3 acid ethyl esters 1 gram 1 cap PO BID 90 days #180 caps 08/14/23 capsule Allergies Allergy/AdvReac Type Severity Reaction Status Date / Time cephalexin [Keflex] Allergy Unknown Hives Verified 10/20/23 16:49 From Keflex Allergy Unknown HIVES Uncoded 04/30/23 08:56 [facility] Social History Social History Housing: House Patient Tobacco Use Status: Current everyday Tobacco user Cigarettes Per Day: 10 e-Cigarette/Vaping Use: Never Used Second Hand Smoke Exposure: No Advance Directives: No Advance Directives Information Provided: No service: No Current occupational status: employed Current occupation: [employer] Current occupational exposures/hazards: No Cognitive needs: No Hearing needs: No Vision needs: No Physical Exam Vital Signs: Vital Signs: Last Vital Signs Temp 98.2 F 10/20/23 16:45 Pulse 73 10/20/23 16:45 Resp 18 10/20/23 16:45 BP 148/64 H 10/20/23 16:45 Pulse Ox 97 10/20/23 16:45 O2 Del Method Room Air 10/20/23 16:45 BMI result Body Mass Index 33.5 Course Course Course Narrative: This is an RME: Additional HPI, ROS, PE not included below will be deferred to primary provider. RME assessment and note performed by: Lu Livingston PA-C This is a 43-year-old male who presents emergency department with complaints of right leg laceration which occurred today work. He accidentally lacerated his right leg on a piece of tile. 3 cm laceration noted requiring suture repair, unsure of last tetanus shot. Plan: Wound repair, tetanus Reevaluation(s) Reevaluation #1: Patient left without completing treatment. Discharge Plan Discharge Clinical Impression: Laceration of leg Patient Disposition: Left W/O Completing Treatment Prescriptions: No Action (DME) FreeStyle Lite Strips Strip See Rx Instructions .Route Qty: 100 3RF Rx Instructions: Use to check blood sugar twice daily: fasting blood sugar and random blood sugar (DME) blood-glucose meter [FreeStyle Lite Meter] Kit See Rx Instructions .Route Qty: 1 0RF Rx Instructions: Use to check blood sugar twice daily: fasting blood sugar and random blood sugar (DME) lancets [FreeStyle Lancets] 28 gauge misc See Rx Instructions .Route Qty: 100 3RF Rx Instructions: Use to check blood sugar twice daily: fasting blood sugar and random blood sugar metformin 1,000 mg tablet 1,000 mg PO BID Qty: 180 0RF fenofibric acid 105 mg tablet 105 mg PO DAILY Qty: 90 0RF omega-3 acid ethyl esters 1 gram capsule 1 cap PO BID 90 Days Qty: 180 0RF Adult Robitussin Peak Cold M-S 5-10-100 mg/5 mL liquid 10 ml PO Q4H PRN (Reason: cold symptoms) Qty: 237 0RF oseltamivir [Tamiflu] 75 mg capsule 75 mg PO BID 5 Days Qty: 10 0RF Discharge Date/Time: 10/21/23 02:46
== END 2023-10-21 02:46 | disposition left against medical advice (07) ==
LOC: HO.ED 10-21 02:07
PROVIDERS: Emergency Provider Emergency Medicine; PCP Nurse Practitioner Family
DX: S81.811A Laceration without foreign body, right lower leg, initial encounter (principal); W26.8XXA Contact with other sharp object(s), not elsewhere classified, initial encounter; Y93.9 Activity, unspecified; Y92.89 Other specified places as the place of occurrence of the external cause; Y99.0 Civilian activity done for income or pay
CPT/HCPCS: 99281

== ENCOUNTER 2024-01-03 13:00 | Emergency (ER) | payer OTHER, SELFPAY ==
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
--- NOTE | ~2024-01-03 | XR_ITS ---
EXAMINATION: XR CHEST 2 VIEW CLINICAL INFORMATION: Chest pain, shortness of breath. COMPARISON: 07/04/2016 TECHNIQUE: PA and lateral views of the chest obtained. FINDINGS: The lungs are clear. There are no pleural effusions. The cardiomediastinal silhouette is normal. XR/XR chest 2V IMPRESSION: No acute cardiopulmonary disease.
--- NOTE | 2024-01-03 13:12 | ECG_ITS ---
Test Reason : chest pain Blood Pressure : / mmHG Vent. Rate : 098 BPM Atrial Rate : 098 BPM P-R Int : 124 ms QRS Dur : 094 ms QT Int : 350 ms P-R-T Axes : 075 069 062 degrees QTc Int : 446 ms Normal sinus rhythm Normal ECG When compared with ECG of 29-APR-2010 19:51, No significant change was found Referred By: Generic ED Physician Electronically Signed By:THOMAS VALDEZ MD
[2024-01-03 13:28] VITALS: BP 187/86; PULSE 94; RESP 18; TEMP 36.6; O2SAT 96; BMI 29.8
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
[2024-01-03 13:57] LABS: MANUAL DIFF FLAG NO
[2024-01-03 14:01] LABS: Basophils Percent Auto 0.2 % (0-2); Eosinophils Percent Auto 0.2 % (0-4); Hematocrit 43.9 % (42.0-52.0); Hemoglobin 14.9 g/dl (14.0-18.0); Imm Gran Abs Auto 0.03 X10*3/uL (0.00-0.03); Imm Gran Pct Auto 0.3 % (0.0-0.4); Lymphocytes Absolute Auto 1.9 X10*3/uL (1.2-4.9); Lymphocytes Percent Auto 20.3 % (20-40); Mean Corpuscular HGB Conc 33.9 g/dl (31.0-36.0); Mean Corpuscular Hemoglobin 31.4 pg (27.0-33.0); Mean Corpuscular Volume 92.4 fL (80.0-98.0); Mean Platelet Volume 9.5 fL (9.4-12.4); Monocytes Absolute Auto 0.3 X10*3/uL (0.1-1.2); Monocytes Percent Auto 3.3 % (2-11); Neutrophils Absolute Auto 7.2 x10*3/uL (2.0-8.3); Neutrophils Percent Auto 75.7 % (45-73); Platelet Count 212 X10*3/uL (160-400); Red Blood Count 4.75 X10*6/uL (4.60-5.80); Red Cell Distribution Width 12.7 % (11.0-16.0); White Blood Count 9.6 X10*3/uL (4.8-10.8)
[2024-01-03 14:15] LABS: Alanine Aminotransferase 25 U/L (0-40); Albumin Level 4.4 g/dL (3.5-5.0); Alkaline Phosphatase 62 U/L (39-117); Anion Gap 13 (12-20); Aspartate Amino Transferase 30 U/L (5-37); Bilirubin Total 0.7 mg/dL (0.0-1.0); Blood Urea Nitrogen 21 mg/dL (9-16); Calcium 9.8 mg/dL (8.4-10.2); Carbon Dioxide 25 mmol/L (22-29); Chloride 105 mmol/L (96-108); Creatinine Clr Calc Pharmacy 93.6; Estimated Glomerular Filt Rate > 60; Glucose Random 164 mg/dL (60-115); Lipase 19 U/L (8-78); Magnesium 1.9 mg/dL (1.6-2.6); Potassium 4.1 mmol/L (3.3-5.1); Sodium 139 mmol/L (135-145); Total Protein 7.1 g/dL (6.5-8.0)
[2024-01-03 14:23] LABS: Troponin-I High Sensitivity < 2.7 ng/L (<3.5-35.0)
[2024-01-03 16:33] VITALS: BP 146/82
[2024-01-03 16:39] LABS: Appearance Urine Clear; Color Urine Dark Yellow; Glucose Urine UA Negative (Negative); Leukocyte Esterase Urine Negative (Negative); Nitrite Urine Negative (Negative); PH 5.5 (5.0-9.0); Specific Gravity - Urine >= 1.030 (1.005-1.025); Urine Blood Negative (Negative); Urine Ketones Trace mg/dL (Negative); Urine Protein Trace mg/dL (Neg-Trace)
[2024-01-03 17:09] VITALS: BP 146/82; PULSE 94; RESP 18; TEMP 36.6
== END 2024-01-03 17:10 | disposition home or self-care (01) ==
PROVIDERS: Physician Assistant Medical; Emergency Provider Student in an Organized Health Care Education/Training Program; PCP Nurse Practitioner Family
DX: I10 Essential (primary) hypertension (principal); F41.9 Anxiety disorder, unspecified; R06.02 Shortness of breath; R51.9 Headache, unspecified; E11.9 Type 2 diabetes mellitus without complications; E78.5 Hyperlipidemia, unspecified; Z79.84 Long term (current) use of oral hypoglycemic drugs; Z79.899 Other long term (current) drug therapy
CPT/HCPCS: 36415; 70450; 71046; 80053; 81003; 83690; 83735; 84484; 85025; 93005; 99284

== ENCOUNTER → 2024-01-03 13:12 | Outpatient (BNV) | payer OTHER, SELFPAY | PROVIDERS: Emergency Provider Student in an Organized Health Care Education/Training Program; PCP Nurse Practitioner Family; Visit Provider Internal Medicine Cardiovascular Disease | DX: R07.9 Chest pain, unspecified (principal) | CPT/HCPCS: 93010 ==

== ENCOUNTER 2024-02-14 11:34 | Outpatient (AMB) | payer OTHER, SELFPAY ==
[2024-02-14 11:40] VITALS: BP 128/80; PULSE 81; O2SAT 97; BMI 29.7
--- NOTE | 2024-02-14 11:40 | MHC.PC.OV ---
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: No Accompanied by: Self / Same As Patient Allergies cephalexin [Keflex] Allergy (Unknown, Verified 02/14/24 11:59) Hives From Keflex Allergy (Unknown, Uncoded 02/14/24 11:59) HIVES Medication List - Last Reconciled 02/14/24 by SHON Kahn blood sugar diagnostic (FreeStyle Lite Strips) Use to check blood sugar twice daily: fasting blood sugar and random blood sugar blood-glucose meter (FreeStyle Lite Meter kit) Use to check blood sugar twice daily: fasting blood sugar and random blood sugar lancets (FreeStyle Lancets) Use to check blood sugar twice daily: fasting blood sugar and random blood sugar lisinopril 5 mg PO DAILY methadone 48 mg PO Q6H Tobacco use date assessed: 02/14/24 Dental Screening Dental Screen Date: 02/14/24 Did you have a dental visit in the last 12 months?: Yes Did you have a dental problem in the last 6 months where you did not have access to dental care?: No Was dental information given to patient?: Patient has dentist HPI follow up HPI Details Pt is a diabetic, on an TAYLOR. A1C in office today is 5.9. Microalbumin is up to date. Denies polyuria, polydipsia, and neuropathy. Pt denies any signs and symptoms of hypoglycemia and does know how to correct it. Due for eye exam, will refer. He has been working on his diet, portions sizes and cutting back sweets. [facility] Surgical History No pertinent past surgical history Social History Housing: House Patient Tobacco Use Status: Current everyday Tobacco user Cigarettes Per Day: 10 e-Cigarette/Vaping Use: Never Used Second Hand Smoke Exposure: No service: No Current occupational status: employed Current occupation: [employer] Current occupational exposures/hazards: No Cognitive needs: No Hearing needs: No Vision needs: No Questionnaire PHQ-9 Over the last 2 weeks, how often have you been bothered by any of the following problems? 1. Little interest or pleasure in doing things: more than half the days 2. Feeling down, depressed, or hopeless: more than half the days 3. Trouble falling or staying asleep, or sleeping too much: more than half the days 4. Feeling tired or having little energy: more than half the days 5. Poor appetite or overeating: not at all 6. Feeling bad about yourself - or that you are a failure or have let yourself or your family down: more than half the days 7. Trouble concentrating on things, such as reading the newspaper or watching television: not at all 8. Moving or speaking so slowly that other people could have noticed. Or the opposite - being so fidgety or restless that you have been moving around a lot more than usual: more than half the days 9. Thoughts that you would be better off or of hurting yourself in some way: more than half the days Total score: 14 Depression Screening Interpretation: Positive Depression Screening Done: Yes 75072 - PHQ-9 Billing: Yes Source: Developed by Drs. Mayco Aquino, Belen Perez, Cosme Pacheco and colleagues, with an educational genna from [employer]. Thrive Questionnaire Date Thrive assessed: 02/14/24 I am a: Patient What is your living situation today?: I have a steady place to live Within the past 12 months, did the food you bought not last and you didn't have the money to get more?: Never true Within the past 12 months, did you worry whether your food would run out before you got money to buy more?: Never true Do you have trouble paying for medicines?: No Do you have trouble getting transportation to medical appointments?: No Do you have trouble paying your heating and electricity bill?: No Do you have trouble taking care of your child, family member or friend?: No Do you have trouble with day-to-day activities such as bathing, preparing meals, shopping, managing finances, etc.?: No Are you currently unemployed and looking for a job?: No Are you interested in more education?: No Please select the resources that you would like help with: Utilities and Childcare Currently or been in a relationship where the following occur: No concerns reported THRIVE Score: 0 AUDIT C Alcohol Use Questionnaire (AUDIT-C) 1. How often do you have a drink containing alcohol?: Never 3. How often do you have six or more drinks on one occasion?: Never Total Score: 0 Score Reviewed/Action Taken: Yes HARVINDER-7 AMB Questionnaire HARVINDER-7 Date HARVINDER - 7 assessed: 02/14/24 Feeling nervous, anxious, or on edge: 2 = More than half the days Not being able to stop or control worryin = More than half the days Worrying too much about different things: 2 = More than half the days Trouble relaxin = More than half the days Being so restless that it is hard to sit still: 2 = More than half the days Becoming easily annoyed or irritable: 2 = More than half the days Feeling afraid as if something awful might happen: 2 = More than half the days Total HARVINDER-7 score (0-4 normal; 5-9 mild; 10-14 moderate; 15-21 severe): 14 Source: Developed by Drs. Mayco Aquino, Belen Perez, Cosme Pacheco and colleagues, with an educational genna from [employer]. HARVINDER-7 Assessment Billing HARVINDER-7 Assessment Tool: HARVINDER-7 Assessment 92890 Review of Systems Const Reports as per HPI Physical exam (Primary Care) Vital Signs: Last Vital Signs Pulse 81 02/14/24 11:40 BP 128/80 02/14/24 11:40 Pulse Ox 97 02/14/24 11:40 Oxygen Delivery Method Room Air 02/14/24 11:40 BMI result Body Mass Index 29.7 Tobacco/Smoking Status: Tobacco use Status Tobacco use date assessed 02/14/24 02/14/24 11:52 Patient Tobacco Use Status Current everyday Tobacco 02/14/24 11:41 e-Cigarette/Vaping Use Never Used 02/14/24 11:41 PHQ-9: PHQ-9 Score PHQ-9: Total score 14 02/14/24 11:52 Depression Screening Interpretation: Positive Thrive Assessment: Date of Thrive Assessment Date Thrive assessed 02/14/24 02/14/24 11:52 Currently or been in a relationship where the following occur: No concerns reported Const General: cooperative Orientation/consciousness: patient oriented x3 Resp Effort & Inspection: normal respiratory effort Auscultation: clear to auscultation bilaterally Cardio Rate: regular rate Rhythm: regular rhythm Heart sounds: S1 normal heart sound present and S2 normal heart sound present Neuro General: patient oriented x3 Extrem Other: bilat feet: + sensation with use of monofilament, feet intact Psych Appearance: grossly normal Mental Status: mental status grossly normal Speech and movement: Normal speech and movement present Affect: normal affect Attitude: cooperative Thought process: Normal thought process present Thought content: Normal thought content present Insight: Good insight present (Psych) Judgement: Good judgement present (Psych) Assessment and Plan Assessment & Plan (1) Diabetes: Code(s): E11.9 - Type 2 diabetes mellitus without complications Plan: Labs ordered Plan The patient agreed to the use of a medical care evaluation specialist for this encounter. Scribed for SHON Bishop by June Donahue medical care evaluation specialist, on 02/14/2024 at 12:00 EST. Orders: Orders UA CC w/rflx Micro + Cult Today E11.9 - Type 2 diabetes mellitus without complications Complete Blood Count Auto Diff Today E11.9 - Type 2 diabetes mellitus without complications Comprehensive [place]. Panel Fast Today E11.9 - Type 2 diabetes mellitus without complications TSH reflex Free T4 Today E11.9 - Type 2 diabetes mellitus without complications Lipid Panel Today E11.9 - Type 2 diabetes mellitus without complications Referrals Ophthalmology Referral E11.9 - Type 2 diabetes mellitus without complications Coding Level of Care Code Est Pt Level 3 (26778) Diagnoses Diabetes E11.9 Additional Codes HARVINDER-7 Assessment Billing - HARVINDER-7 Assessment Tool: HARVINDER-7 Assessment 90401 ([id number])
== END 2024-02-14 12:46 | disposition home or self-care (01) ==
PROVIDERS: PCP Nurse Practitioner Family; Visit Provider Nurse Practitioner Family
DX: E11.9 Type 2 diabetes mellitus without complications (principal)

== ENCOUNTER → 2024-02-14 11:34 | Outpatient (BNVA) | payer OTHER, SELFPAY | PROVIDERS: PCP Nurse Practitioner Family; Visit Provider Nurse Practitioner Family | DX: E11.9 Type 2 diabetes mellitus without complications (principal) | CPT/HCPCS: 96127; 99212 ==

== ENCOUNTER 2024-03-07 07:09 | Outpatient (REF) | payer OTHER, SELFPAY ==
[2024-03-07 10:15] LABS: MANUAL DIFF FLAG NO
[2024-03-07 10:15] LABS: Appearance Urine Turbid; Color Urine Yellow; Glucose Urine UA Negative (Negative); Leukocyte Esterase Urine Negative (Negative); Nitrite Urine Negative (Negative); Specific Gravity - Urine 1.025 (1.005-1.025); Urine Blood Negative (Negative); Urine Ketones Negative (Negative); Urine Protein Negative (Neg-Trace)
[2024-03-07 10:21] LABS: Basophils Percent Auto 0.4 % (0-2); Eosinophils Absolute Auto 0.1 X10*3/uL (0.0-0.4); Eosinophils Percent Auto 1.1 % (0-4); Hemoglobin 15.7 g/dl (14.0-18.0); Imm Gran Abs Auto 0.04 X10*3/uL (0.00-0.03); Imm Gran Pct Auto 0.4 % (0.0-0.4); Lymphocytes Absolute Auto 1.9 X10*3/uL (1.2-4.9); Lymphocytes Percent Auto 18.3 % (20-40); Mean Corpuscular HGB Conc 32.7 g/dl (31.0-36.0); Mean Corpuscular Hemoglobin 31.4 pg (27.0-33.0); Mean Platelet Volume 10.2 fL (9.4-12.4); Monocytes Absolute Auto 0.4 X10*3/uL (0.1-1.2); Monocytes Percent Auto 4.1 % (2-11); Neutrophils Absolute Auto 7.7 x10*3/uL (2.0-8.3); Neutrophils Percent Auto 75.7 % (45-73); Platelet Count 228 X10*3/uL (160-400); Red Cell Distribution Width 12.9 % (11.0-16.0); White Blood Count 10.2 X10*3/uL (4.8-10.8)
[2024-03-07 11:05] LABS: Alanine Aminotransferase 24 U/L (0-40); Albumin Level 4.4 g/dL (3.5-5.0); Alkaline Phosphatase 58 U/L (39-117); Anion Gap 12 (12-20); Aspartate Amino Transferase 22 U/L (5-37); Bilirubin Total 0.5 mg/dL (0.0-1.0); Blood Urea Nitrogen 18 mg/dL (9-16); Calcium 9.5 mg/dL (8.4-10.2); Carbon Dioxide 30 mmol/L (22-29); Chloride 104 mmol/L (96-108); Cholesterol 97 mg/dL (<200); Estimated Glomerular Filt Rate > 60; Glucose Fasting 130 mg/dL (60-99); HDL Cholesterol 36 mg/dL (>40); LDL Cholesterol Calculated 36 mg/dL (<100); Potassium 4.6 mmol/L (3.3-5.1); Sodium 141 mmol/L (135-145); Total Protein 6.8 g/dL (6.5-8.0); Triglycerides 129 mg/dL (<150)
[2024-03-07 11:07] LABS: TSH reflex Free T4 1.33 uIU/mL (0.32-4.0)
== END 2024-03-07 07:10 | disposition home or self-care (01) ==
LOC: HO.HMGCLDS 07:09
PROVIDERS: PCP Nurse Practitioner Family; Visit Provider Nurse Practitioner Family
DX: E11.9 Type 2 diabetes mellitus without complications (principal)
CPT/HCPCS: 36415; 80053; 80061; 81003; 84443; 85025

== ENCOUNTER 2024-05-13 07:48 | Outpatient (AMB) | payer OTHER, SELFPAY ==
[2024-05-13 07:55] VITALS: BP 140/70; PULSE 79; O2SAT 98; BMI 32.4
--- NOTE | 2024-05-13 07:55 | A.OFFPC_ITS ---
Vital Signs 05/13/24 07:55 Height 5 ft 11 in Weight 232 lb BMI 32.4 BP 140/70 H Blood Pressure Location Lt brachial Position Sitting Pulse 79 Pulse Source Pulse Oximeter Pulse Oximetry (%) 98 Oxygen Delivery Method Room Air Intake Visit Reasons: PE Intake Note: Pt is here today for his PE Allergies cephalexin [Keflex] Allergy (Unknown, Verified 02/14/24 11:59) Hives From Keflex Allergy (Unknown, Uncoded 02/14/24 11:59) HIVES Medication List - Last Reconciled 05/13/24 by LEANDRA KahnP- atorvastatin 40 mg PO BEDTIME blood sugar diagnostic (FreeStyle Lite Strips) Use to check blood sugar twice daily: fasting blood sugar and random blood sugar blood-glucose meter (FreeStyle Lite Meter kit) Use to check blood sugar twice daily: fasting blood sugar and random blood sugar lancets (FreeStyle Lancets) Use to check blood sugar twice daily: fasting blood sugar and random blood sugar lisinopril 5 mg (2 x 2.5 mg) PO DAILY methadone 48 mg PO Q6H Tobacco use date assessed: 05/13/24 Dental Screening Dental Screen Date: 05/13/24 Did you have a dental visit in the last 12 months?: Yes Did you have a dental problem in the last 6 months where you did not have access to dental care?: No Was dental information given to patient?: Patient has dentist HPI PE HPI Details History of Present Illness The patient is a 44-year-old male presenting with a need for a physical exam and follow-up for diabetes mellitus. He has been diagnosed with diabetes mellitus in the past and is currently managing his condition. 7.5 a1c today. He reports being intolerant to metformin. There is no history of neuropathy, polydipsia, or polyuria associated with his diabetes at this time. The patient also has a history of bipolar disorder, which was recently diagnosed. He is undergoing therapy and is following up with a psychiatric medication provider. Additionally, he has been experiencing some depression and anxiety but denies any suicidal or homicidal ideation. Health Maintenance - Initiate GLP-1 agonist therapy due to intolerance to metformin. - No initiation of SGLT-2 inhibitor, [facility] status. Social History Review of Systems - Neurologic: Denies neuropathy. - Endocrine: Denies polydipsia and polyu vanessa. - Respiratory: Denies shortness of breat h. - Cardiovascular: Denies chest pain. - Psychiatric: Reports depression and an xiety; denies suicidal or homicidal ideation. Physical Exam General: Cooperative, healthy appearing, comfortable, no acute distress and well developed Orientation: Patient oriented x3 Limitations: No limitations Head: Normal to inspection Ears: Hearing grossly normal bilaterally Nose: Normal external nose present Face and sinus: Normal facial exam Eyes: Appearance normal, both eyes and all related structures, patient is a little bit teary-eyed today Neck: Normal visual inspection and Yes full ROM Respiratory: Normal respiratory effort and able to speak in complete sentences. Clear to auscultation bilaterally Cardiovascular: Regular rate and rhythm. Normal S1 and S2 GI: Normal to inspection. Soft to palpation and nontender Skin: No rashes or lesions noted Neuro: Patient oriented x3, + sensation with use of monofilament, feet intact Extremities: Normal to inspection Results Plan - Commence GLP-1 agonist for diabetes ma nagement due to metformin intolerance. - Advise patient to continue psychiatric follow-up for bipolar disorder. - Continue current psychiatric therapy a nd medication to manage depression and anxiety. - Monitor diabetes symptoms and encourag e reporting any new or worsening symptoms. - Examination of the patient regarding p ossible hernia; advised emergency room evaluation to rule out incarceration or strangulation if symptoms suggest. Patient was informed and verbally consented to the use of an ambient scribe for clinic note documentation during this visit. Discussion Notes During the visit, I discussed the patient's intolerance to metformin and the decision to start a GLP-1 agonist for better management of diabetes mellitus. I emphasized the need to avoid SGLT-2 inhibitors due to the patient being uncircumcised and potential complications. We reviewed the status of his psychiatric conditions. I advised that he continues with therapy and medication management. I asked the patient to monitor his symptoms and report any changes, especially concerning diabetes or mental health. I recommended an ER evaluation for the possible hernia without delay, as outpatient workups can be delayed. Patient Instructions - Begin GLP-1 agonist therapy for diabet es management. - Continue attending psychiatric therapy and follow medication regimen. - Monitor for any new symptoms related t o diabetes or mood changes and report them. . [facility] Surgical History No pertinent past surgical history Social History (Reviewed 02/14/24 @ 15:36 by Da Valdez, [facility]) Housing: House Patient Tobacco Use Status: Current everyday Tobacco user Cigarettes Per Day: 10 e-Cigarette/Vaping Use: Never Used Second Hand Smoke Exposure: No service: No Current occupational status: employed Current occupation: [email or web address] Current occupational exposures/hazards: No Cognitive needs: No Hearing needs: No Vision needs: No Questionnaire PHQ-9 Over the last 2 weeks, how often have you been bothered by any of the following problems? 21009 - PHQ-9 Billing: Patient declined-do not bill Source: Developed by Drs. Mayco Aquino, Belen Perez, Cosme Pacheco and colleagues, with an educational genna from [employer]. Thrive Questionnaire Date Thrive assessed: 02/14/24 I am a: Patient What is your living situation today?: I have a steady place to live Within the past 12 months, did the food you bought not last and you didn't have the money to get more?: Never true Within the past 12 months, did you worry whether your food would run out before you got money to buy more?: Never true Do you have trouble paying for medicines?: No Do you have trouble getting transportation to medical appointments?: No Do you have trouble paying your heating and electricity bill?: No Do you have trouble taking care of your child, family member or friend?: No Do you have trouble with day-to-day activities such as bathing, preparing meals, shopping, managing finances, etc.?: No Are you interested in more education?: No Currently or been in a relationship where the following occur: No concerns reported THRIVE Score: 0 HARVINDER-7 AMB Questionnaire HARVINDER-7 Date HARVINDER - 7 assessed: 02/14/24 Source: Developed by Drs. Mayco Aquino, Belen Perez, Cosme Pacheco and colleagues, with an educational genna from [employer]. Physical exam (Primary Care) Vital Signs: Last Vital Signs Pulse 79 05/13/24 07:55 BP 140/70 H 05/13/24 07:55 Pulse Ox 98 05/13/24 07:55 Oxygen Delivery Method Room Air 05/13/24 07:55 BMI result Body Mass Index 32.4 Tobacco/Smoking Status: Tobacco use Status Tobacco use date assessed 05/13/24 05/13/24 07:59 Patient Tobacco Use Status Current everyday Tobacco 05/13/24 07:55 e-Cigarette/Vaping Use Never Used 05/13/24 07:55 Thrive Assessment: Date of Thrive Assessment Date Thrive assessed 02/14/24 05/13/24 07:55 Currently or been in a relationship where the following occur: No concerns reported Results AMB Hemoglobin A1c AMB Hemoglobin A1c 7.5 % Last Edit by Vasyl Hook CMA on 05/13/24 08: 14 Coding Diagnoses Diabetes E11.9 Physical exam Z00.00 Bipolar 1 disorder F31.9 Assessment & Plan Assessment & Plan (1) Diabetes: Code(s): E11.9 - Type 2 diabetes mellitus without complications Category: Medical (2) Physical exam: Code(s): Z00.00 - Encounter for general adult medical examination without abnormal findings Category: Medical (3) Bipolar 1 disorder: Code(s): F31.9 - Bipolar disorder, unspecified Category: Medical Orders: Orders TSH reflex Free T4 Today E11.9 - Type 2 diabetes mellitus without complicat ions, Z00.00 - Encounter for general adult medical examination without abnormal findings UA CC w/rflx Micro + Cult Today E11.9 - Type 2 diabetes mellitus without complications, Z00.00 - Encounter for general adult medical examination without abnormal findings Microalbumin, Random (w Creat) Today E11.9 - Type 2 diabetes mellitus without complications, Z00.00 - Encounter for general adult medical examination without abnormal findings Complete Blood Count Auto Diff Today E11.9 - Type 2 diabetes mellitus without complications, Z00.00 - Encounter for general adult medical examination without abnormal findings Comprehensive [place]. Panel Fast Today E11.9 - Type 2 diabetes mellitus without complications, Z00.00 - Encounter for general adult medical examination without abnormal findings Lipid Panel Today E11.9 - Type 2 diabetes mellitus without complications, Z00 .00 - Encounter for general adult medical examination without abnormal findings AMB Hemoglobin A1c Today Z13.9 - Encounter for screening, unspecified Medications: New tirzepatide (Mounjaro) for 4 weeks 2.5 mg (0.5 mL) subcut QWEEK 2 mL 0RF
== END 2024-05-13 08:49 | disposition home or self-care (01) ==
PROVIDERS: PCP Nurse Practitioner Family; Visit Provider Nurse Practitioner Family
DX: Z13.9 Encounter for screening, unspecified (principal)

== ENCOUNTER → 2024-05-13 07:48 | Outpatient (BNVA) | payer OTHER, SELFPAY | PROVIDERS: PCP Nurse Practitioner Family; Visit Provider Nurse Practitioner Family | DX: Z00.00 Encounter for general adult medical examination without abnormal findings (principal); E11.9 Type 2 diabetes mellitus without complications; F31.9 Bipolar disorder, unspecified | CPT/HCPCS: 83036 ==

== ENCOUNTER 2024-05-27 08:32 | Outpatient (AMB) | payer OTHER, SELFPAY ==
--- NOTE | 2024-05-27 09:03 | AM.OFFWIN_ITS ---
Intake Vital Signs 3 05/27/24 09:04 Height 5 ft 11 in Weight 232 lb BMI 32.4 BP 150/90 H Blood Pressure Location Lt brachial Position Sitting Pulse 69 Pulse Source Pulse Oximeter Temp 98.2 F Temp Source Oral Pulse Oximetry (%) 97 Oxygen Delivery Method Room Air Intake Visit Reasons: EP-rt side lump behind ear Intake Note: Patient here for lump behind right ear and went to the ED and was put on antibiotics which has helped drain it but it is still present. Patient Tobacco Use Status: Current everyday Tobacco user Allergies cephalexin [Keflex] Allergy (Unknown, Verified 05/27/24 09:06) Hives From Keflex Allergy (Unknown, Uncoded 05/27/24 09:06) HIVES Medication List - Last Reconciled 05/27/24 by Ninoska Delgado MD atorvastatin 40 mg PO BEDTIME blood sugar diagnostic (FreeStyle Lite Strips) Use to check blood sugar twice daily: fasting blood sugar and random blood sugar blood-glucose meter (FreeStyle Lite Meter kit) Use to check blood sugar twice daily: fasting blood sugar and random blood sugar clonidine HCl 0.1 mg PO BID PRN empagliflozin (Jardiance) 10 mg PO DAILY lancets (FreeStyle Lancets) Use to check blood sugar twice daily: fasting blood sugar and random blood sugar lisinopril 5 mg (2 x 2.5 mg) PO DAILY methadone 48 mg PO Q6H olanzapine 5 mg PO BID sulfamethoxazole-trimethoprim 800-160 mg 2 tabs PO BID topiramate 100 mg PO BEDTIME zolpidem 5 mg PO BEDTIME Do you need a note to return to daycare/school/sports/work: No HPI EP-rt side lump behind ear 2 HPI0 Details Chief Complaint Patient presents for follow-up of an enlarged lump behind right ear, that has decreased in size with antibiotic treatment. History of Present Illness - The patient is a 44-year-old male pres enting with a follow-up evaluation for an enlarged cervical lymph node experiencing improvement after initiation of antibiotic treatment. - Developed a palpable mass one month ago, initially treated with Bactrim. - Observed significant reduction in size of the node after one week of antibiotics. - The lesion had drained twice; no previ ous history of similar lymph node issues. - Denies symptoms of infection or other systemic symptoms. - No history of recent infections or all ergies noted, although a history of boils was acknowledged. - The patient remains on antibiotics wit h plans to continue the 14-day treatment. Review of Systems - General: Denies fever, chills. - ENT: Denies ear pain, hearing loss. - Respiratory: Denies cough. - Gastrointestinal: Denies nausea, vomit ing. Constitutional: No fever no chills Respiratory: no Cough, no shortness a breath Cardiovascular: no palpitations, no chest pains gastrointestinal: No nausea no vomiting no diarrhea SEO ASSOCIATE: No headache no blurring of vision skin: No rash back: No CVAT extremities: As per history Plan The patient presents for follow-up regarding an enlarged cervical lymph node, suspected to be lymphadenitis, showing improvement with antibiotic treatment. Continuation of the prescribed 14-day Bactrim course is recommended to resolve the condition. Should the enlargement persist post-therapy, surgical excision may be necessary. Recognition of the patient's history of skin issues suggests possible causation linked to recent skin trauma or infection, guiding the consideration for further evaluation if recurrences become frequent. Future considerations may include consultation with an clinical pharmacy specialist based on recurrent symptomatology consistent with immune response triggers. [facility] Surgical History No pertinent past surgical history Social History Housing: House Patient Tobacco Use Status: Current everyday Tobacco user Cigarettes Per Day: 10 e-Cigarette/Vaping Use: Never Used Second Hand Smoke Exposure: No service: No Current occupational status: employed Current occupation: [email or web address] Current occupational exposures/hazards: No Cognitive needs: No Hearing needs: No Vision needs: No Review of Systems Const All systems reviewed & are unremarkable except as noted in HPI and below Physical Exam Vital Signs: Last Vital Signs Temp 98.2 F 05/27/24 09:04 Pulse 69 05/27/24 09:04 BP 150/90 H 05/27/24 09:04 Pulse Ox 97 05/27/24 09:04 Oxygen Delivery Method Room Air 05/27/24 09:04 BMI result Body Mass Index 32.4 Const General: no acute distress Orientation/consciousness: patient oriented x3 HEENT Head images: 2 1. Form lump without fluctuation size of almond, ear without any infection Eyes General: appearance normal, both eyes and all related structures Resp Effort & Inspection: normal respiratory effort and able to speak in complete sentences Neuro General: patient oriented x3 Psych Mental Status: mental status grossly normal Assessment & Plan Assessment & Plan (1) Boil of head or scalp: Code(s): L02.821 - Furuncle of head [any part, except face] Plan Chief Complaint Patient presents for follow-up of an enlarged lump behind right ear, that has decreased in size with antibiotic treatment. History of Present Illness - The patient is a 44-year-old male presenting with a follow-up evaluation for an enlarged cervical lymph node experiencing improvement after initiation of antibiotic treatment. - Developed a palpable mass one month ago, initially treated with Bactrim. - Observed significant reduction in size of the node after one week of antibiotics. - The lesion had drained twice; no previous history of similar lymph node issues. - Denies symptoms of infection or other systemic symptoms. - No history of recent infections or allergies noted, although a history of boils was acknowledged. - The patient remains on antibiotics with plans to continue the 14-day treatment. Review of Systems - General: Denies fever, chills. - ENT: Denies ear pain, hearing loss. - Respiratory: Denies cough. - Gastrointestinal: Denies nausea, vomiting. Constitutional: No fever no chills Respiratory: no Cough, no shortness a breath Cardiovascular: no palpitations, no chest pains gastrointestinal: No nausea no vomiting no diarrhea SEO ASSOCIATE: No headache no blurring of vision skin: No rash back: No CVAT extremities: As per history Plan The patient presents for follow-up regarding an enlarged cervical lymph node, suspected to be lymphadenitis, showing improvement with antibiotic treatment. Continuation of the prescribed 14-day Bactrim course is recommended to resolve the condition. Should the enlargement persist post-therapy, surgical excision may be necessary. Recognition of the patient's history of skin issues suggests possible causation linked to recent skin trauma or infection, guiding the consideration for further evaluation if recurrences become frequent. Future considerations may include consultation with an clinical pharmacy specialist based on recurrent symptomatology consistent with immune response triggers. Coding Level of Care Code Est Pt Level 3 (73220) Diagnoses Boil of head or scalp L02.821
[2024-05-27 09:04] VITALS: BP 150/90; PULSE 69; TEMP 36.8; O2SAT 97; BMI 32.4
== END 2024-05-27 09:18 | disposition home or self-care (01) ==
PROVIDERS: PCP Nurse Practitioner Family; Visit Provider Internal Medicine
DX: L02.821 Furuncle of head [any part, except face] (principal)

== ENCOUNTER 2024-08-13 06:40 | Outpatient (REF) | payer OTHER, SELFPAY ==
[2024-08-13 10:23] LABS: MANUAL DIFF FLAG NO
[2024-08-13 10:40] LABS: Basophils Percent Auto 0.6 % (0-2); Eosinophils Absolute Auto 0.1 X10*3/uL (0.0-0.4); Hematocrit 43.9 % (42.0-52.0); Imm Gran Abs Auto 0.02 X10*3/uL (0.00-0.03); Imm Gran Pct Auto 0.3 % (0.0-0.4); Mean Corpuscular HGB Conc 34.2 g/dl (31.0-36.0); Mean Corpuscular Hemoglobin 30.7 pg (27.0-33.0); Mean Corpuscular Volume 89.8 fL (80.0-98.0); Mean Platelet Volume 10.3 fL (9.4-12.4); Monocytes Absolute Auto 0.4 X10*3/uL (0.1-1.2); Neutrophils Absolute Auto 3.4 x10*3/uL (2.0-8.3); Neutrophils Percent Auto 49.1 % (45-73); Platelet Count 198 X10*3/uL (160-400); Red Blood Count 4.89 X10*6/uL (4.60-5.80)
[2024-08-13 10:58] LABS: Alanine Aminotransferase 48 U/L (0-40); Albumin Level 3.9 g/dL (3.5-5.0); Alkaline Phosphatase 79 U/L (39-117); Anion Gap 11 (12-20); Aspartate Amino Transferase 34 U/L (5-37); Bilirubin Total 0.3 mg/dL (0.0-1.0); Blood Urea Nitrogen 25 mg/dL (9-16); Calcium 8.7 mg/dL (8.4-10.2); Carbon Dioxide 24 mmol/L (22-29); Chloride 107 mmol/L (96-108); Cholesterol 113 mg/dL (<200); Estimated Glomerular Filt Rate > 60; Glucose Fasting 186 mg/dL (60-99); HDL Cholesterol 30 mg/dL (>40); LDL Cholesterol Calculated 46 mg/dL (<100); Potassium 4.2 mmol/L (3.3-5.1); Sodium 138 mmol/L (135-145); Total Protein 6.8 g/dL (6.5-8.0); Triglycerides 188 mg/dL (<150)
[2024-08-13 11:09] LABS: Appearance Urine Clear; Color Urine Yellow; Glucose Urine UA >=1000 mg/dL (Negative); Leukocyte Esterase Urine Negative (Negative); Nitrite Urine Negative (Negative); Specific Gravity - Urine >= 1.030 (1.005-1.025); UMIC TRIGGER UACC YES; Urine Blood Negative (Negative); Urine Ketones Negative (Negative); Urine Protein Negative (Neg-Trace)
[2024-08-13 11:13] LABS: TSH reflex Free T4 2.47 uIU/mL (0.32-4.0)
[2024-08-13 11:18] LABS: Bacteria Urine None Seen (None Seen); Hyaline Casts Urine 0-2 /LPF (0-2); RBC Urine 0-2 /HPF (0-2); Squamous Epithelial Cell Urine 0-2 /HPF (0-2); WBC Urine 0-5 /HPF (0-5)
[2024-08-13 12:08] LABS: Microalbum/Creatinine Ratio Ur 14.4 ug/mg cr (<30)
[2024-08-14 08:43] LABS: Estimated Average Glucose 154 mg/dL; Total Hemoglobin (HGBA1C) 3936.3913 umol/L
== END 2024-08-13 06:41 | disposition home or self-care (01) ==
LOC: HO.HMGCLDS 06:40
PROVIDERS: PCP Nurse Practitioner Family; Visit Provider Nurse Practitioner Family
DX: Z00.00 Encounter for general adult medical examination without abnormal findings (principal); E11.9 Type 2 diabetes mellitus without complications
CPT/HCPCS: 36415; 80053; 80061; 81001; 81003; 82043; 82570; 83036; 84443; 85025

== ENCOUNTER 2024-08-14 08:03 | Outpatient (AMB) | payer OTHER, SELFPAY ==
--- NOTE | 2024-08-14 08:05 | A.OFFPC_ITS ---
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 Required: No Accompanied by: Self / Same As Patient Allergies cephalexin [Keflex] Allergy (Unknown, Verified 08/14/24 08:06) Hives From Keflex Allergy (Unknown, Uncoded 05/27/24 09:06) HIVES Medication List - Last Reconciled 08/14/24 by OKSANA Kahn-EDUARD atorvastatin 40 mg PO BEDTIME blood sugar diagnostic (FreeStyle Lite Strips) Use to check blood sugar twice daily: fasting blood sugar and random blood sugar blood-glucose meter (FreeStyle Lite Meter kit) Use to check blood sugar twice daily: fasting blood sugar and random blood sugar clonidine HCl 0.1 mg PO BID PRN empagliflozin (Jardiance) 10 mg PO DAILY lancets (FreeStyle Lancets) Use to check blood sugar twice daily: fasting blood sugar and random blood sugar lisinopril 10 mg PO DAILY methadone 48 mg PO Q6H olanzapine 5 mg PO BID zolpidem 5 mg PO BEDTIME Tobacco use date assessed: 08/14/24 Dental Screening Dental Screen Date: 08/14/24 Did you have a dental visit in the last 12 months?: Yes Did you have a dental problem in the last 6 months where you did not have access to dental care?: No Was dental information given to patient?: Patient has dentist HPI 6m follow up HPI Details Chief Complaint Concerns regarding blood pressure management and anxiety. History of Present Illness The patient is a 44-year-old male presenting with concerns regarding blood pressure management and anxiety. He has a history of essential hypertension with home readings indicating systolic pressures in the 150s. He denies associated symptoms such as chest pain or shortness of breath and reports right big toe has intermittent neuropathy. He has been managing anxiety, particularly following a familial bereavement, with support from mental health professionals. Despite recent stressors, his anxiety has not worsened. neuro-test including monofilament testing, did not reveal sensory impairments. Routine diabetes care has been maintained, including eye examination referrals. Recent lab work indicated elevated ALT levels, necessitating further diagnostic work-up, including abdominal ultrasound and hepatitis screening. Social History - Recently experienced a in the [facility]; sees a therapist and a psychiatrist for support. - Reports managing stress and anxiety [facility] professional mental health support. Health Maintenance - Routine diabetic eye exams with referr als as required. - Microalbumin levels monitored and with in normal limits. - Regular blood pressure monitoring at h ome. Review of Systems - Cardiovascular: Denies chest pain, den ies shortness of breath. - Neurological: Denies neuropathy. - Endocrine: Denies polyuria, denies carolyne ydipsia. Physical Exam General: Cooperative, healthy appearing, comfortable, no acute distress and well developed Orientation: Patient oriented x3 Limitations: No limitations Head: Normal to inspection Ears: Hearing grossly normal bilaterally Nose: Normal external nose present Face and sinus: Normal facial exam Eyes: Appearance normal, both eyes and all related structures Neck: Normal visual inspection and Yes full ROM Respiratory: Normal respiratory effort and able to speak in complete sentences. Clear to auscultation bilaterally Cardiovascular: Regular rate and rhythm. Normal S1 and S2 GI: Normal to inspection. Soft to palpation and nontender Skin: No rashes or lesions noted Neuro: Patient oriented x3 Extremities: Normal to inspection, positive sensation with use of monofilament Results - Labs: Elevated liver enzyme (ALT). - Tests and diagnostics: Microalbumin le vels within normal limits. Plan I will initiate propranolol to manage the patient's hypertension and anxiety concurrently. The patient's diabetes management involves an upcoming eye examination with appropriate referrals in place. Due to the elevated ALT observed in the blood work, I plan to conduct an abdominal ultrasound and hepatitis screening to explore possible hepatic conditions. Continuing mental health support is advised following recent personal loss. Discussion Notes During our visit, I discussed initiating propranolol to help manage the patient's blood pressure and anxiety. We reviewed the potential benefits of propranolol, including its dual impact on blood pressure and anxiety, and emphasized monitoring for any side effects. We also covered the importance of maintaining regular diabetic eye exams, securing the necessary referrals for ophthalmologic evaluation. I explained that the elevated ALT necessitates further testing, including an abdominal ultrasound and hepatitis panel, to identify any liver issues. Follow-up appointments will be essential to assess the effectiveness of these interventions and adjust therapy as needed. The patient expressed understanding and agreement with the management plan. Patient Instructions - Begin taking propranolol as prescribed for blood pressure and anxiety management. - Attend the scheduled diabetic eye exam as referred. - Undergo abdominal ultrasound and hepat itis screen for further assessment of liver findings. - Continue attending sessions with your therapist and psychiatrist for anxiety management. - Keep monitoring blood pressure at home and report any significant changes or concerns. - Return for follow-up as scheduled to beth delong progress and test results. 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 38163 - PHQ-9 Billing: Patient declined-do not bill Source: Developed by Drs. Mayco Aquino, Belen Peerz, Cosme Pacheco and colleagues, with an educational genna from [email or web address]. Thrive Questionnaire Date Thrive assessed: 08/14/24 I am a: Patient What is your living situation today?: I have a steady place to live Within the past 12 months, did the food you bought not last and you didn't have the money to get more?: Never true Within the past 12 months, did you worry whether your food would run out before you got money to buy more?: Never true Do you have trouble paying for medicines?: No Do you have trouble getting transportation to medical appointments?: No Do you have trouble paying your heating and electricity bill?: No Do you have trouble taking care of your child, family member or friend?: No Do you have trouble with day-to-day activities such as bathing, preparing meals, shopping, managing finances, etc.?: No Are you interested in more education?: No Currently or been in a relationship where the following occur: No concerns reported THRIVE Score: 0 AUDIT C Alcohol Use Questionnaire (AUDIT-C) 1. How often do you have a drink containing alcohol?: Never 3. How often do you have six or more drinks on one occasion?: Never Total Score: 0 Score Reviewed/Action Taken: Yes HARVINDER-7 AMB Questionnaire HARVINDER-7 Date HARVINDER - 7 assessed: 08/14/24 (patient declined) Source: Developed by Drs. Mayco Aquino, Belen Perez, Cosme Pacheco and colleagues, with an educational genna from [email or web address]. Physical exam (Primary Care) Vital Signs: Last Vital Signs Temp 98.2 F 08/14/24 08:06 Pulse 86 08/14/24 08:06 BP 140/80 H 08/14/24 08:06 Pulse Ox 98 08/14/24 08:06 Oxygen Delivery Method Room Air 08/14/24 08:06 BMI result Body Mass Index 33.7 Tobacco/Smoking Status: Tobacco use Status Tobacco use date assessed 08/14/24 08/14/24 08:07 Patient Tobacco Use Status Current everyday Tobacco 08/14/24 08:07 e-Cigarette/Vaping Use Never Used 08/14/24 08:07 Thrive Assessment: Date of Thrive Assessment Date Thrive assessed 08/14/24 08/14/24 08:07 Currently or been in a relationship where the following occur: No concerns reported Coding Level of Care Code Est Pt Level 3 (68185) Diagnoses Elevated liver enzymes R74.8 Diabetes E11.9 HTN (hypertension) I10 Hypertension type: unspecified Assessment & Plan Assessment & Plan (1) Elevated liver enzymes: Code(s): R74.8 - Abnormal levels of other serum enzymes Category: Medical (2) Diabetes: Code(s): E11.9 - Type 2 diabetes mellitus without complications Category: Medical (3) HTN (hypertension): Code(s): I10 - Essential (primary) hypertension Category: Medical Qualifiers: Hypertension type: unspecified Qualified Code(s): I10 - Essential (primary) hypertension Plan . Orders: Orders Hepatitis A,B,C Profile Today R74.8 - Abnormal levels of other serum enzymes US abdomen complete Today R74.8 - Abnormal levels of other serum enzymes Hemoglobin A1c Today E11.9 - Type 2 diabetes mellitus without complications Referrals Ophthalmology Referral E11.9 - Type 2 diabetes mellitus without complications Medications: New propranolol ER 60 mg PO BEDTIME 30 days 30 caps 1RF
[2024-08-14 08:06] VITALS: BP 140/80; PULSE 86; TEMP 36.8; O2SAT 98; BMI 33.7
--- OUTSIDE RECORDS SUMMARY | 2024-08-14 08:07 | XMS_ITS | Clinical Summary ---
Author Organization [facility] Address [id number] [place] [phone] Care Team Providers Care Motorcycle Riding Instructor Name Role Phone Bryan Garcia MD Primary Care Provider Unava ilable Social History Tobacco Use Types Packs/Day Years Used Date Smoking Tobacco: Never Assessed Sex and Gender Information Value Date Recorded Sex Assigned at Not on file Legal Sex Male 5:28 AM EST Gender Identity Not on file Sexual Orientation Not on file Plan of Treatment Health Maintenance Due Date Last Done Comments DTaP,Tdap,and Td Vaccines (1 - Tdap) 2000 Hepatitis B Vaccines (1 of 3 - 19+ 3-dose series) 2000 Cholesterol Screening (Lipid Panel) 01/21/2024 Depression Screening 01/21/2024 HIV Screening 01/21/2024 Hepatitis C Screening 01/21/2024 Social Influencers of Health Screening 01/21/2024 COVID-19 Vaccine ( - 2023-2 5 season) 2024 Influenza Vaccine (#1) 2024 HIB Vaccines Aged Out No longer eligi ble based on patient's age to complete this topic HPV Vaccines Aged Out No longer eligi ble based on patient's age to complete this topic Hepatitis A Vaccines Aged Out No long er eligible based on patient's age to complete this topic IPV Vaccines Aged Out No longer eligi ble based on patient's age to complete this topic MMR Vaccines Aged Out No longer eligi ble based on patient's age to complete this topic Meningococcal ACWY Vaccine Aged Out N o longer eligible based on patient's age to complete this topic Meningococcal B Vacine Aged Out No lo nger eligible based on patient's age to complete this topic Pneumococcal Vaccine: Pediat rics (0 to 5 Years) and At-Risk Patients (6 to 64 Years) Aged Out No longer eligible b ased on patient's age to complete this topic RSV Immunization Patients Un jaz 20 months Aged Out No longer eligible b ased on patient's age to complete this topic Varicella Vaccines Aged Out No longer eligible based on patient's age to complete this topic Care Teams Motorcycle Riding Instructor Relationship Specialty Start Date End Date Bryan Garcia MD PCP - General Internal Medicine 07/15/18
== END 2024-08-14 08:43 | disposition home or self-care (01) ==
LOC: HO.HMCC 08:03
PROVIDERS: PCP Nurse Practitioner Family; Visit Provider Nurse Practitioner Family
DX: R74.8 Abnormal levels of other serum enzymes (principal); E11.9 Type 2 diabetes mellitus without complications; I10 Essential (primary) hypertension

== ENCOUNTER → 2024-08-14 08:03 | Outpatient (BNVA) | payer OTHER, SELFPAY | PROVIDERS: PCP Nurse Practitioner Family; Visit Provider Nurse Practitioner Family | DX: R74.8 Abnormal levels of other serum enzymes (principal); E11.9 Type 2 diabetes mellitus without complications; I10 Essential (primary) hypertension | CPT/HCPCS: 99212 ==

== ENCOUNTER 2024-09-02 09:53 | Outpatient (REF) | payer OTHER, SELFPAY ==
--- NOTE | ~2024-09-02 | US_ITS ---
CLINICAL HISTORY: R74.8 - Abnormal levels of other serum enzymes US abdomen complete Comparison: None Findings: The visualized pancreas is normal. The aorta and inferior vena cava are normal caliber. The liver is normal in size measuring 15.7 cm in craniocaudal dimension. Slightly increased echogenicity. There is no intrahepatic bile duct dilatation. The common duct is 6.1 mm in diameter. The gallbladder is normal. There is no sonographic Gonzales sign. The main portal vein is antegrade. The right kidney is 12.3 cm in length. The left kidney is 11.1 cm in length. The spleen is normal. No ascites. IMPRESSION: 1. Slightly increased echogenicity of the liver may represent hepatic steatosis, otherwise unremarkable. This document has been electronically signed by: Urbano Schreiber MD on 09/02/2024 23:02:58
--- OUTSIDE RECORDS SUMMARY | 2024-09-02 11:23 | XMS_ITS | Clinical Summary ---
Author Organization [facility] Address [id number] [place] [phone] Care Team Providers Care Rayon Tester Name Role Phone Bryan Garcia MD Primary [...] age to complete this topic Meningococcal B Vaccine Aged Out No l onger eligible based on patient's age to complete [...] age to complete this topic Care Teams Rayon Tester Relationship Specialty Start Date End Date Bryan Garcia MD PCP - General Internal Medicine 07/15/18
== END 2024-09-02 09:54 | disposition home or self-care (01) ==
LOC: HO.HMGCX 09:53
PROVIDERS: PCP Nurse Practitioner Family; Visit Provider Nurse Practitioner Family
DX: R74.8 Abnormal levels of other serum enzymes (principal)
CPT/HCPCS: 76700

== ENCOUNTER → 2024-09-02 09:55 | Outpatient (BNV) | payer OTHER, SELFPAY | PROVIDERS: PCP Nurse Practitioner Family; Visit Provider Student in an Organized Health Care Education/Training Program | DX: R74.8 Abnormal levels of other serum enzymes (principal) | CPT/HCPCS: 76700 ==

== ENCOUNTER 2025-01-05 15:30 | Outpatient (AMB) | payer OTHER, SELFPAY ==
--- OUTSIDE RECORDS SUMMARY | 2025-01-05 15:38 | XMS_ITS | Clinical Summary ---
Author Organization [facility] Address [id number] [place] [phone] Care Team Providers Care Machine Stonecutter Name Role Phone Bryan Garcia MD Primary [...] series) 2000 Cholesterol Screening (Lipid Panel) 01/21/2024 HIV Screening 01/21/2024 Hepatitis C Screening 01/21/2024 Social Influencers of Health Screening 01/21/2024 COVID-19 Vaccine ( - 2023-2 5 season) 2024 Depression Screening 05/28/2024 Influenza Vaccine (#1) 2025 HIB Vaccines Aged Out No longer eligi [...] 5 Years) and At-Risk Patients (6 to 49 Years) Aged Out No longer eligible b ased on patient's age to complete this topic RSV Immunization Patients Un jaz 20 months Aged Out No longer eligible b ased on patient's age to complete this topic Varicella Vaccines Aged Out No longer eligible based on patient's age to complete this topic Care Teams Machine Stonecutter Relationship Specialty Start Date End Date Bryan Garcia MD PCP - General Internal Medicine 07/15/18
[2025-01-05 15:39] VITALS: BP 124/72; PULSE 82; O2SAT 98; BMI 34.4
--- NOTE | 2025-01-05 15:39 | A.OFFPC_ITS ---
Vital Signs 01/05/25 15:39 Height 5 ft 11 in Weight 247 lb BMI 34.4 BP 124/72 Blood Pressure Location Rt brachial Position Sitting Pulse 82 Pulse Oximetry (%) 98 Oxygen Delivery Method Room Air Intake Visit Reasons: 4 months f/up-inactive ins. check with OA Steel Welder Required: No Accompanied by: Self / Same As Patient Allergies cephalexin (Keflex) Allergy (Unknown, Verified 01/05/25 15:39) Hives From Keflex Allergy (Unknown, Uncoded 05/27/24 09:06) HIVES Tobacco use date assessed: 08/14/24 Dental Screening Dental Screen Date: 08/14/24 HPI 4 months f/up-inactive ins. check with OA HPI Details Chief Complaint The patient presents for a follow-up regarding diabetes management and concerns about his mental health. History of Present Illness The patient is a 44-year-old male presenting with diabetes management and mental health concerns. He has a history of diabetes mellitus with a current A1c of 6.5, indicating controlled blood glucose levels. denies any polyuria, polydipsia, or neuropathy. The patient also has a history of bipolar disorder, and known childhood trauma, and was previously under the care of a psychologist and psychiatrist. He is observed (today) feeling paranoid and questioning everything, which is a deviation from his usual state. He has started tapering his medications without medical advice, expressing a desire to discontinue them, including methadone (has been apparently sober for approx 5 years now). 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 The patient denies current suicidal ideation but acknowledges knowing how to harm himself if he ever decided to do so. He emphasizes his commitment to his daughter and , which he states as a reason for living. The behavioral health staff (Josephine) engaged with the patient extensively, and it was agreed that he should be evaluated at the emergency room for further assessment and possible treatment. The patient initially agreed to this plan but later became somewhat reluctant and questioned the decision, though walked out of the building. Social History - Family status: Lives for his daughter and . Health Maintenance Review of Systems - Psychiatric: Reports paranoia and ques tioning everything. Denies current suicidal ideation. Physical Exam General: Cooperative, healthy appearing, comfortable, no acute distress and well developed, obese Orientation: Patient oriented x3 Limitations: No limitations Head: Normal to inspection Ears: Hearing grossly normal bilaterally Nose: Normal external nose present Face and sinus: Normal facial exam Eyes: Appearance normal, both eyes and all related structures Neck: Normal visual inspection and Yes full ROM Respiratory: Normal respiratory effort and able to speak in complete sentences. Clear to auscultation bilaterally Cardiovascular: Regular rate and rhythm. Normal S1 and S2 GI: Normal to inspection. Soft to palpation and nontender Skin: No rashes or lesions noted Neuro: Patient oriented x3 Extremities: Normal to inspection Results - Labs: Hemoglobin A1c is 6.5%. Plan The patient will be referred to the emergency room for further evaluation and possible treatment of his mental health condition, given his current state of paranoia and medication non-compliance. ER staff have already been contacted, report will be called to the emergency room to facilitate his admission. The patient was initially agreeable to this plan but later expressed reluctance and questioned the decision. I reemphasized the relevance behind him seeking psych care NOW, said okay , and walked out of the building. I tried calling his girlfriend (mother of his child whom he lives with, and authorized emergency contact), voicemail. Discussion Notes I discussed with the patient the need for further evaluation at the emergency room due to his current mental health status and medication non-compliance. The risks of not addressing his mental health concerns were explained, and the patient initially agreed to the plan but later expressed some reluctance/hesitation. Patient Instructions - Go to the emergency room at [facility] for further evaluation. - Follow the guidance of the behavioral health staff and emergency room personnel. [facility], [facility] Surgical History No pertinent past surgical history Social History Housing: House Patient Tobacco Use Status: Current everyday Tobacco user Cigarettes Per Day: 10 e-Cigarette/Vaping Use: Never Used Second Hand Smoke Exposure: No service: No Current occupational status: employed Current occupation: [employer] Current occupational exposures/hazards: No Cognitive needs: No Hearing needs: No Vision needs: No Questionnaire PHQ-9 Over the last 2 weeks, how often have you been bothered by any of the following problems? 1. Little interest or pleasure in doing things: nearly every day 2. Feeling down, depressed, or hopeless: more than half the days 3. Trouble falling or staying asleep, or sleeping too much: more than half the days 4. Feeling tired or having little energy: not at all 5. Poor appetite or overeating: more than half the days 6. Feeling bad about yourself - or that you are a failure or have let yourself or your family down: more than half the days 7. Trouble concentrating on things, such as reading the newspaper or watching television: more than half the days 8. Moving or speaking so slowly that other people could have noticed. Or the opposite - being so fidgety or restless that you have been moving around a lot more than usual: not at all 9. Thoughts that you would be better off or of hurting yourself in some way: not at all Total score: 13 Depression Screening Interpretation: Positive (denies any intentions of SI or HI, report given to ER, recommended pt to go directly to the ER) Depression Screening Follow-up: Existing condition Depression Screening Done: Yes Source: Developed by Drs. Mayco Aquino, Belen Perez, Cosme Pacheco and colleagues, with an educational genna from [employer]. Thrive Questionnaire Date Thrive assessed: 08/14/24 I am a: Patient What is your living situation today?: I choose not to answer this question Within the past 12 months, did the food you bought not last and you didn't have the money to get more?: I choose not to answer this question Within the past 12 months, did you worry whether your food would run out before you got money to buy more?: Sometimes True Do you have trouble paying for medicines?: I choose not to answer this question Do you have trouble getting transportation to medical appointments?: I choose not to answer this question Do you have trouble paying your heating and electricity bill?: I choose not to answer this question Do you have trouble taking care of your child, family member or friend?: I choose not to answer this question Do you have trouble with day-to-day activities such as bathing, preparing meals, shopping, managing finances, etc.?: I choose not to answer this question Are you currently unemployed and looking for a job?: I choose not to answer this question Are you interested in more education?: I choose not to answer this question Please select the resources that you would like help with: Daily support Currently or been in a relationship where the following occur: I choose not to answer THRIVE Score: 1 AUDIT C Alcohol Use Questionnaire (AUDIT-C) 1. How often do you have a drink containing alcohol?: Never Total Score: 0 HARVINDER-7 AMB Questionnaire HARVINDER-7 Date HARVINDER - 7 assessed: 08/14/24 (patient declined) Feeling nervous, anxious, or on edge: 2 = More than half the days Not being able to stop or control worryin = More than half the days Worrying too much about different things: 2 = More than half the days Trouble relaxin = More than half the days Being so restless that it is hard to sit still: 2 = More than half the days Becoming easily annoyed or irritable: 2 = More than half the days Feeling afraid as if something awful might happen: 2 = More than half the days Total HARVINDER-7 score (0-4 normal; 5-9 mild; 10-14 moderate; 15-21 severe): 14 Source: Developed by Drs. Mayco Aquino, Belen Perez, Cosme Pacheco and colleagues, with an educational genna from [employer]. HARVINDER-7 Assessment Billing HARVINDER-7 Assessment Tool: HARVINDER-7 Assessment 61013 (recommend pt to ER, report given, josephine () saw pt today) Physical exam (Primary Care) Vital Signs: Last Vital Signs Pulse 82 01/05/25 15:39 BP 124/72 01/05/25 15:39 Pulse Ox 98 01/05/25 15:39 Oxygen Delivery Method Room Air 01/05/25 15:39 BMI result Body Mass Index 34.4 Tobacco/Smoking Status: Tobacco use Status Tobacco use date assessed 08/14/24 01/05/25 15:39 Patient Tobacco Use Status Current everyday Tobacco 01/05/25 15:39 e-Cigarette/Vaping Use Never Used 01/05/25 15:39 PHQ-9: PHQ-9 Score PHQ-9: Total score 13 01/05/25 15:47 Depression Screening Interpretation: Positive (denies any intentions of SI or HI, report given to ER, recommended pt to go directly to the ER) Depression Screening Follow-up: Existing condition Thrive Assessment: Date of Thrive Assessment Date Thrive assessed 08/14/24 01/05/25 15:39 Currently or been in a relationship where the following occur: I choose not to answer Coding Level of Care Code Est Pt Level 4 (89479) Diagnoses Diabetes E11.9 Bipolar 1 disorder F31.9 Paranoid F22 Additional Codes HARVINDER-7 Assessment Billing - HARVINDER-7 Assessment Tool: HARVINDER-7 Assessment 51623 ([id number]) Assessment & Plan Assessment & Plan (1) Diabetes: Code(s): E11.9 - Type 2 diabetes mellitus without complications Category: Medical (2) Bipolar 1 disorder: Code(s): F31.9 - Bipolar disorder, unspecified Category: Medical (3) Paranoid: Code(s): F22 - Delusional disorders Category: Medical Plan . Orders: Orders Complete Blood Count Auto Diff Today E11.9 - Type 2 diabetes mellitus without complications TSH reflex Free T4 Today E11.9 - Type 2 diabetes mellitus without complications UA CC w/rflx Micro + Cult Today E11.9 - Type 2 diabetes mellitus without complications Lipid Panel Today E11.9 - Type 2 diabetes mellitus without complications AMB Hemoglobin A1c Today Z13.9 - Encounter for screening, unspecified Comprehensive [place]. Panel Fast Today E11.9 - Type 2 diabetes mellitus without complications
== END 2025-01-05 17:00 | disposition home or self-care (01) ==
PROVIDERS: PCP Nurse Practitioner Family; Visit Provider Nurse Practitioner Family
DX: E11.9 Type 2 diabetes mellitus without complications (principal); F31.9 Bipolar disorder, unspecified; F22 Delusional disorders

== ENCOUNTER → 2025-01-05 15:30 | Outpatient (BNVA) | payer OTHER, SELFPAY | PROVIDERS: PCP Nurse Practitioner Family; Visit Provider Nurse Practitioner Family | DX: E11.9 Type 2 diabetes mellitus without complications (principal); F41.9 Anxiety disorder, unspecified; R45.851 Suicidal ideations; F31.9 Bipolar disorder, unspecified; F22 Delusional disorders | CPT/HCPCS: 96127; 99212 ==

== ENCOUNTER 2025-05-12 09:06 | Outpatient (REF) | payer OTHER, SELFPAY ==
--- OUTSIDE RECORDS SUMMARY | 2025-05-12 10:21 | XMS_ITS | Clinical Summary ---
Author Organization [facility] ity Address [id number] [place] [id number] Care Team Providers Care Wooden Box Maker Name Role Phone Bryan Garcia MD Primary [...] of 3 - 19+ 3-dose series) 2000 HPV Vaccines (1 - 3-dose SCD M series) 2008 Cholesterol Screening (Lipid Panel) 01/21/2024 HIV Screening 01/21/2024 Hepatitis C Screening 01/21/2024 Social Influencers of Health Screening 01/21/2024 Depression Screening 05/28/2024 COVID-19 Vaccine (1 - 2024-2 6 season) 2025 Influenza Vaccine (#1) 2025 RSV Immunization Adult Patie nts (1 - 1-dose 75+ series) 2056 HIB Vaccines Aged Out No longer eligi [...] age to complete this topic Care Teams Wooden Box Maker Relationship Specialty Start Date End Date Bryan Garcia MD PCP - General Internal Medicine 07/15/18
[2025-05-12 10:44] LABS: MANUAL DIFF FLAG NO
[2025-05-12 10:58] LABS: Hematocrit 43.9 % (42.0-52.0); Hemoglobin 14.8 g/dl (14.0-18.0); Imm Gran Abs Auto 0.02 X10*3/uL (0.00-0.03); Imm Gran Pct Auto 0.3 % (0.0-0.4); Lymphocytes Absolute Auto 3.3 X10*3/uL (1.2-4.9); Mean Corpuscular HGB Conc 33.7 g/dl (31.0-36.0); Mean Corpuscular Hemoglobin 30.8 pg (27.0-33.0); Mean Corpuscular Volume 91.5 fL (80.0-98.0); NRBC Abs Auto 0.000 X10*3/uL (0.0-0.012); NRBC Pct Auto 0.0 /100WBC (0.0-0.2); Platelet Count 223 X10*3/uL (160-400); Red Blood Count 4.80 X10*6/uL (4.60-5.80); White Blood Count 7.6 X10*3/uL (4.8-10.8)
[2025-05-12 11:01] LABS: Appearance Urine Clear; Glucose Urine UA 100 mg/dL (Negative); PH 5.5 (5.0-9.0); Specific Gravity - Urine 1.020 (1.005-1.025)
[2025-05-12 11:30] LABS: HBS Num1 22.70 mIU/mL (0-7.99); HBc Num1 0.16 S/CO (0.00-0.79); Hepatitis A Antibody IgM 0.24 Index (0-0.79); ~Hepatitis A Antibody IgM Nonreactive (Nonreactive); ~Hepatitis B Surface Antibody REACTIVE (Nonreactive)
[2025-05-12 11:57] LABS: Alanine Aminotransferase 20 U/L (0-40); Albumin Level 3.9 g/dL (3.5-5.0); Alkaline Phosphatase 71 U/L (39-117); Anion Gap 12 (12-20); Aspartate Amino Transferase 44 U/L (5-37); Blood Urea Nitrogen 16 mg/dL (9-16); Calcium 8.7 mg/dL (8.4-10.2); Carbon Dioxide 28 mmol/L (22-29); Chloride 102 mmol/L (96-108); Cholesterol 163 mg/dL (<200); Estimated Glomerular Filt Rate > 60; HDL Cholesterol 24 mg/dL (>40); Potassium 4.0 mmol/L (3.3-5.1); Sodium 138 mmol/L (135-145); Total Protein 6.1 g/dL (6.5-8.0); Triglycerides 398 mg/dL (<150)
[2025-05-13 04:45] LABS: ~HepC Num1 0.09 S/CO (0.00-0.79); ~Hepatitis C Antibody Nonreactive (Nonreactive)
[2025-05-14 13:14] LABS: HBsAGNum1 0.29 S/CO (0.00-0.99); Hepatitis B Surface Antigen Negative (Negative)
== END 2025-05-12 09:07 | disposition home or self-care (01) ==
LOC: HO.HMGCLDS 09:06
PROVIDERS: PCP Nurse Practitioner Family; Visit Provider Nurse Practitioner Family
DX: E11.9 Type 2 diabetes mellitus without complications (principal); R74.8 Abnormal levels of other serum enzymes; Z11.59 Encounter for screening for other viral diseases
CPT/HCPCS: 36415; 80053; 80061; 81003; 84443; 85025; 86704; 86706; 86709; 86803; 87340